=== PATIENT | male | born 1985 | race Caucasian/White ===

== ENCOUNTER 2020-12-14 15:26 | Inpatient (IN) | payer MEDICAID, SELFPAY ==
[2020-12-14] VITALS (18 sets, daily range): BP systolic 115–137; BP diastolic 50–107; PULSE 56–86; RESP 9–22; TEMP 36.4–36.8; O2SAT 93–100; BMI 23.1; BMI 23.8
--- NOTE | 2020-12-14 15:35 | CT_ITS ---
EXAM: CT ANGIOGRAPHY HEAD AND NECK WITH INTRAVENOUS CONTRAST CLINICAL INDICATION: Neuro deficit, acute, stroke suspected TECHNIQUE: [place] [facility] [place]/head and neck CT angiography protocol performed with intravenous contrast. This CT exam was performed using one or more of the following dose reduction techniques: automated exposure control, adjustment of the mA and/or kV according to patient size, and/or use of iterative reconstruction technique. This report was created using QWi[employer] report generation technology. MIP reconstructed images were created and reviewed. CONTRAST: IV 100mL [id number] COMPARISON: None. FINDINGS: ARTIFACTS: Motion artifact limits evaluation of the carotid bifurcations. HEAD: RIGHT ANTERIOR CEREBRAL ARTERY: Unremarkable. No significant stenosis at the visualized segments. Anterior communicating artery is present. No aneurysm. RIGHT MIDDLE CEREBRAL ARTERY: Unremarkable. No significant stenosis at the visualized segments. No aneurysm. RIGHT POSTERIOR CEREBRAL ARTERY: Unremarkable. No occlusion or significant stenosis. No aneurysm. LEFT ANTERIOR CEREBRAL ARTERY: Unremarkable. No significant stenosis at the visualized segments. No aneurysm. LEFT MIDDLE CEREBRAL ARTERY: Unremarkable. No significant stenosis at the visualized segments. No aneurysm. LEFT POSTERIOR CEREBRAL ARTERY: Unremarkable. No occlusion or significant stenosis. No aneurysm. BASILAR ARTERY: Unremarkable. No significant stenosis. No aneurysm. GREAT VESSELS OF AORTIC ARCH: Unremarkable. Normal anatomy, patent. OTHER VASCULATURE: See above. NECK: RIGHT COMMON CAROTID ARTERY: Unremarkable. No significant stenosis. No dissection or occlusion. RIGHT INTERNAL CAROTID ARTERY: See above. RIGHT EXTERNAL CAROTID ARTERY: Unremarkable. No occlusion. RIGHT VERTEBRAL ARTERY: Unremarkable. No significant stenosis. No dissection or occlusion. LEFT COMMON CAROTID ARTERY: Unremarkable. No significant stenosis. No dissection or occlusion. LEFT INTERNAL CAROTID ARTERY: See above. LEFT EXTERNAL CAROTID ARTERY: Unremarkable. No occlusion. LEFT VERTEBRAL ARTERY: Unremarkable. No significant stenosis. No dissection or occlusion. LUNG APICES: Unremarkable as visualized. SOFT TISSUES: Unremarkable. CAROTID STENOSIS REFERENCE USING NASCET CRITERIA: % ICA stenosis = (1 - narrowest ICA diameter/diameter of distal cervical ICA) x 100. Mild - <50% stenosis. Moderate - 50-69% stenosis. Severe - 70-94% stenosis. Near occlusion - 95-99% stenosis. Occluded - 100% stenosis. CT/STROKE CTA Head AND Neck W/Con IMPRESSION: No acute findings in the arteries of the head and neck. N.B. : The above information has been verbally conveyed by Esteban Granados MD (Brooks) to Alexsander Kelly on 12/14/2020 16:05:07 (ET). Electronically Signed: Esteban Granados MD (Brooks) at 16:09 EDT , Service support ,
--- NOTE | 2020-12-14 15:35 | CT_ITS ---
STUDY: CT HEAD STROKE PROTOCOL W/O CONTRAST INJECTION REASON FOR EXAM: Male, 35 years old. Neuro deficit, acute, stroke suspected RADIATION DOSAGE (If Supplied By Facility): CTDIvol = ( ) mGy, DLP = ( ) mGycm TECHNIQUE: Transaxial CT imaging of the brain was performed without administration of intravenous contrast material. Individualized dose optimization techniques were used for this CT. COMPARISON: No relevant priors. FINDINGS: Normal soft tissue structures. Normal calvarium. Normal size ventricles and extra-axial spaces for the patient''s age. Normal white matter tracts of the cerebral hemispheres. Normal basal ganglia and thalami. Normal brainstem. Normal cerebellum. There is no intracranial hemorrhage. There are no findings of an acute ischemic infarction. Normal visualized paranasal sinuses. ASPECT score: 10 CT/STROKE Brain/Head without Cont IMPRESSION: No acute intracranial hemorrhage or mass effect. N.B. : The above information has been verbally conveyed by Esteban Granados MD (Brooks) to Leeann Robin on 12/14/2020 15:54:26 (ET). Electronically Signed: Esteban Granados MD (Brooks) at 15:55 EDT , Service support ,
--- NOTE | 2020-12-14 15:35 | EKG12_ITS ---
Test Reason : NEURO Blood Pressure : / mmHG Vent. Rate : 069 BPM Atrial Rate : 069 BPM P-R Int : 202 ms QRS Dur : 102 ms QT Int : 426 ms P-R-T Axes : 060 081 049 degrees QTc Int : 456 ms Normal sinus rhythm Normal ECG Confirmed by HARIS REN, REY ([id number]), editor & co founder DREW STEINER ([id number]) on 12/17/2020 9:35:44 AM Referred By: RU Confirmed By:REY CARBALLO MD
[2020-12-14 15:55] LABS: Absolute Lymphocyte Count 2.52 X10^3/uL (0.83-4.51); Absolute Neutrophil Count 7.8 X10^3/uL (2.0-7.7); Basophil# 0.04 X10^3/uL; Basophil% 0.4 % (0-1); Eosinophil# 0.15 X10^3/uL; Eosinophils% 1.3 % (0-5); Hematocrit 44.3 % (40-54); Lymphocyte # 2.52 X10^3/ul (0.83-4.51); Lymphocyte % 22.3 % (19-41); Mean Corp Hgb Conc 33.9 g/dL (32-36); Mean Corpuscular Hgb 29.4 pg (27.0-32.0); Mean Corpuscular Volume 86.9 fL (80-94); Mean Platelet Vol. 8.5 fl (6.2-12.0); Monocyte# 0.77 X10^3/uL; Monocyte% 6.8 % (0-10); NRBC Flagged by Analyzer 0 % (0-5); Neutrophil # 7.81 X10^3/uL (2.7-7.7); Neutrophil % 68.9 % (47-70); Platelet Count 248 K/mm3 (150-450); RBC Distribution Width CV 12.1 % (11.6-14.6); RBC Distribution Width SD 38.7 fl (35.1-43.9); White Blood Count 11.3 K/mm3 (4.4-11.0)
[2020-12-14 15:56] LABS: Bedside Glucose 107 mg/dL (70-110)
--- NOTE | 2020-12-14 16:06 | EDS_ITS ---
HPI History of Present Illness Chief Complaint: Confusion Detail of Chief Complaint: Patient with confusion that started approximately noon Informant: patient and spouse/S.O. Onset/Context/Timing Onset: Today Narrative Narrative: Patient presents to the emergency department with increased confusion since approximately noon. Patient apparently was last known well at around noon and seen by his mother. He apparently started the some point drive to his ex[employer]'s house and got lost and so she had to go pick him up. Patient not acting appropriately. He is never behaved this way before. He does have a history of hypertension. Patient denies any trauma. He denies recent illness however he is not a good historian. Prior similar symptoms: No [facility] Medical History (Updated 12/14/20 @ 16:[address] Alexsander Kelly DO) Hypertension Substance abuse Allergy/AdvReac Type Severity Reaction Status Date / Time No Known Allergies Allergy Verified 12/14/20 15:32 Social History Smoking Status: Never smoker ROS ROS ED Review of Systems ROS Unobtainable: due to mental status Constitutional Constitutional ED: Reports systems reviewed and no addt'l complaints, except as documented and other Details: Confusion ; Denies body ache(s), change in weight or chills Eyes Eyes: Denies acute decrease in peripheral vision, change in vision, double vision or loss of vision ENT ENT ED: Reports none; Denies ear pain, lip swelling, loss taste/smell, neck pain, otalgia or sore throat Cardiovascular Cardiovascular: Reports none; Denies abdominal pain, chest pain with activity, leg edema, lightheadedness, palpitations, rapid heart rate or syncope Respiratory/Chest Respiratory/Chest: Reports none; Denies change in mental status, dry cough, dyspnea, hemoptysis, shortness of breath at rest or shortness of breath with exertion Gastrointestinal Gastrointestinal: Reports none; Denies abdominal pain, change in stool character, diarrhea, hematemesis, hematochezia, melena, rectal bleeding or vomiting Genitourinary Genitourinary ED: Reports none; Denies abdominal discomfort, anuria, dysuria, genital pain or polyuria Musculoskeletal Musculoskeletal: Reports none; Denies arthralgias, back pain, difficulty walking, extremity pain, muscle weakness or myalgias Integumentary Reports none; Denies abscess or rash Neurologic Neurologic: Reports none and other Details: Confusion and difficulty with speech ; Denies abnormal gait, confusion, focal weakness, frequent falls, headache(s), loss of vision, numbness, paresthesias, radicular pain, vertigo or weakness Psychiatric Psychiatric: Reports systems reviewed and no addt'l complaints, except as documented and none; Denies behavioral changes, confusion, difficulty concentrating, hallucinations, suicidal ideation, tactile hallucinations or visual hallucinations Endocrine Endocrinology: Denies none, cold intolerance, excessive sweating, fatigue or heat intolerance Hematologic/Lymphatic Hematologic/Lymphatic: Reports none; Denies anemia, easy bleeding or easy bruising Allergic/Immunologic Allergic/Immunologic ED: Denies as per HPI, none, lip swelling, mouth swelling, throat swelling, tongue swelling or hives EXAM Physical Exam Const Vital Signs: 12/14/20 15:29 12/14/20 15:34 12/14/20 15:43 Temperature 97.6 F L Temperature Source Oral Pulse Rate 56 L 59 L Respiratory Rate 9 L 12 Blood Pressure 136/80 H 136/80 H Blood Pressure Mean 98 98 Blood Pressure Source Blood Pressure Position Blood Pressure Location Pulse Ox 97 98 Oxygen Delivery Method Room Air Room Air Room Air 12/14/20 15:50 12/14/20 16:04 12/14/20 16:13 Temperature 97.8 F Temperature Source Temporal Pulse Rate 63 68 Respiratory Rate 12 14 Blood Pressure 129/77 H 119/76 119/76 Blood Pressure Mean 94 90 Blood Pressure Source Monitor Blood Pressure Position Semi-Fowlers Blood Pressure Location Left Arm Pulse Ox 98 100 Oxygen Delivery Method Room Air Nasal Cannula 12/14/20 16:19 12/14/20 16:34 Temperature 97.9 F 97.8 F Temperature Source Oral Oral Pulse Rate 60 65 Respiratory Rate 9 L 10 L Blood Pressure 127/85 H 123/77 H Blood Pressure Mean 99 92 Blood Pressure Source Monitor Monitor Blood Pressure Position Semi-Fowlers Semi-Fowlers Blood Pressure Location Left Arm Left Arm Pulse Ox 100 100 Oxygen Delivery Method Room Air Room Air Positive well nourished and well developed General Appearance ED: well developed and NAD HEENT Reports TM's clear and moist mucous membranes normocephalic and atraumatic; Negative for trauma or tenderness Tympanic Membrane ED: Yes TM's clear Eyes PERRL and EOMs intact bilaterally General Eye ED: Negative for pale conjunctiva or scleral icterus Neck no lymphadenopathy, supple and no JVD General: Negative for tenderness Chest Wall inspection of chest normal and palpation of chest normal Chest: Negative for tenderness Resp normal respiratory effort and clear to auscultation bilaterally Effort and Inspection: Negative for respiratory distress or pain with movement Auscultation: Negative for rhonchi, wheezes or diminished lung sounds Cardio regular rate, regular rhythm, S1 normal heart sound, S2 normal heart sound and no murmurs Peripheral Pulses: pulses 2+ throughout GI normal to inspection, nondistended, normoactive bowel sounds, soft to palpation, non-tender, non-distended and no masses Back/Spine no CVA tenderness and no thoracic nor lumbar tenderness Extremity normal to inspection General Extremety ED: Negative for edema General Extremity: Negative for edema Neuro CN's II-XII intact bilaterally, no sensory deficits noted and gait normal Neuro Narrative: Patient with expressive aphasia and confusion. NIH stroke scale of 6. Denise Coma Scale: document GCS findings Spontaneous Obeys Commands Confused 14 Sensorium / Orientation: awake, alert and oriented to person; Negative for oriented to place or oriented to time Cranial Nerves: other Motor Exam: strength 5/5 throughout and strength abnormal Psych mental status grossly normal Skin no rashes or lesions noted and no wounds STROKE Vital Signs/Narrative: Vital Signs Temp Pulse Resp BP Pulse Ox 12/14/20 16:34 97.8 F 65 10 L 123/77 H 100 12/14/20 16:19 97.9 F 60 9 L 127/85 H 100 12/14/20 16:13 119/76 12/14/20 16:04 97.8 F 68 14 119/76 100 12/14/20 15:50 63 12 129/77 H 98 12/14/20 15:34 59 L 12 136/80 H 98 12/14/20 15:29 97.6 F L 56 L 9 L 136/80 H 97 MDM MDM MDM Narrative Medical decision making narrative: A stroke team was activated on arrival. Patient was more than 3 hours [address] symptom onset. [address] of the brain without contrast was unremarkable and CTAs of the head and neck were unremarkable. Telestroke neurologist evaluated patient and is recommending TPA for NIH stroke scale of 6. Patient will be admitted to this hospital and TPA will be started. I discussed with significant other and she is comfortable with moving forward with the TPA. Patient does not have any contraindication to TPA at this time. Lab Data Labs: Laboratory Results - last 24 hr 12/14/20 12/14/20 12/14/20 15:37 15:37 15:37 WBC 11.3 H RBC 5.10 Hgb 15.0 Hct 44.3 MCV 86.9 MCH 29.4 MCHC 33.9 RDW Std Deviation 38.7 RDW Coeff of Amber 12.1 Plt Count 248 MPV 8.5 Immature Gran % (Auto) 0.300 Neut % (Auto) 68.9 Lymph % (Auto) 22.3 Simpson % (Auto) 6.8 Eos % (Auto) 1.3 Baso % (Auto) 0.4 Absolute Neuts (auto) 7.8 H Absolute Lymphs (auto) 2.52 Nucleated RBC % 0 PT 12.6 INR 1.0 APTT 23.0 L Sodium Potassium Chloride Carbon Dioxide Anion Gap BUN Creatinine Estim Creat Clear Calc Est GFR (MDRD) Af Amer Est GFR (MDRD) Non-Af BUN/Creatinine Ratio Glucose Calcium Troponin I Ethyl Alcohol < 3.0 POC Glucose 12/14/20 12/14/20 15:37 15:48 WBC RBC Hgb Hct MCV MCH MCHC RDW Std Deviation RDW Coeff of Amber Plt Count MPV Immature Gran % (Auto) Neut % (Auto) Lymph % (Auto) Simpson % (Auto) Eos % (Auto) Baso % (Auto) Absolute Neuts (auto) Absolute Lymphs (auto) Nucleated RBC % PT INR APTT Sodium 138 Potassium 3.4 L Chloride 104 Carbon Dioxide 30.0 Anion Gap 4 L BUN 34 H Creatinine 0.92 Estim Creat Clear Calc 125.13 Est GFR (MDRD) Af Amer 119 Est GFR (MDRD) Non-Af 99 BUN/Creatinine Ratio 37.0 H Glucose 131 H Calcium 9.0 Troponin I < 0.015 Ethyl Alcohol POC Glucose 107 Radiography Diagnostic Testing: Radiology Impression Brain CT 12/14/20 15:35 IMPRESSION: No acute intracranial hemorrhage or mass effect. N.B. : The above information has been verbally conveyed by Esteban Granados MD (Brooks) to Alexsander Kelly on 12/14/2020 15:54:26 (ET). Electronically Signed: Esteban Granados MD (Brooks) at 15:55 EDT , Service support , ADDENDUM: 12/14/20 1602 IMPRESSION: No acute intracranial hemorrhage or mass effect. N.B. : The above information has been verbally conveyed by Esteban Granados MD (Brooks) to Alexsander Kelly on 12/14/2020 15:54:26 (ET). Electronically Signed: Esteban Granados MD (Brooks) at 15:55 EDT , Service support , Head/Neck CTA 12/14/20 15:35 IMPRESSION: No acute findings in the arteries of the head and neck. N.B. : The above information has been verbally conveyed by Esteban Granados MD (Brooks) to Alexsander Kelly on 12/14/2020 16:05:07 (ET). Electronically Signed: Esteban Granados MD (Brooks) at 16:09 EDT , Service support , ADDENDUM: 12/14/20 1616 IMPRESSION: No acute findings in the arteries of the head and neck. N.B. : The above information has been verbally conveyed by Esteban Granados MD (Brooks) to Alexsander Kelly on 12/14/2020 16:05:07 (ET). Electronically Signed: Esteban Granados MD (Brooks) at 16:09 EDT , Service support , Critical Care Time Critical Care Time: Yes Critical care time (excluding procedures): 30-74 minutes, Discussing w/Patient &/or Family/Commutator Assembler, Discussing w/Consultants and Arranging Admission or Transfer Discharge Plan Triage Chief Complaint: Confusion ED Provider: Alexsander Kelly Dx/Rx/DC Orders Clinical Impression: Stroke, Altered level of consciousness Instructions: ED ALOC, Stroke Primary Care Provider: Care Physician,No Primary Referrals: Care Physician,No Primary [Primary Care Provider] - Disposition Disposition: Acute Care Hospital [facility]
[2020-12-14 16:13] LABS: Prothrombin Time (Protime)PT. 12.6 SECONDS (11.7-14.9)
[2020-12-14 16:18] LABS: Alcohol, Blood (Medical)-Serum < 3.0 mg/dL
[2020-12-14 16:22] LABS: Anion Gap 4 (5-15); BUN 34 mg/dL (7-18); Chloride 104 mmol/L (98-107); Creatinine, Serum 0.92 mg/dL (0.70-1.30); EST Glomerular Filtration Rate 99 mL/min (>60); Est Glom Filt Rate - Afr Amer 119 mL/min (>60); Estimated Creatinine Clearance 125.13 ml/min; Glucose 131 mg/dL (74-106); Potassium 3.4 mmol/L (3.5-5.1); Sodium Level 138 mmol/L (136-145)
--- NOTE | 2020-12-14 16:30 | RAD_ITS ---
STUDY: X-RAY CHEST REASON FOR EXAM: Male, 35 years old. Neuro deficit, acute, stroke suspected TECHNIQUE: AP COMPARISON: None. FINDINGS: EKG leads project over the chest. The lungs are clear and expanded. There is no demonstrated pleural abnormality. Normal size heart. Normal mediastinum and julius. Normal visualized pulmonary arteries. Normal visualized aortic arch and descending thoracic aorta. No acute bony process. There is no demonstrated abnormality of the visualized soft tissue structures of the upper abdomen. RAD/Chest 1 View IMPRESSION: Nonacute portable x-ray examination of the chest. Electronically Signed: Estebna Granados MD (Brooks) at 17:04 EDT , Service support ,
[2020-12-14] MEDS: 0.9% Normal Saline 1,000 ML 100 ML IV ×2 (16:38→18:38)
--- NOTE | 2020-12-14 16:47 | ED.RN ---
NO VERMA PRIOR TO TPA PER ED .
--- NOTE | 2020-12-14 17:20 | ECHOD_ITS ---
Reason For Study: TIA/STROKE Procedure This was a 2D Doppler, Color Flow transthoracic echocardiogram. Exam performed portable in ICU/CCU. Left Ventricle Normal LV size. Left ventricular systolic function is normal. The estimated ejection fraction is 60 %. Normal diastology for age. No regional wall motion abnormalities noted. Right Ventricle Normal RV size. Normal systolic function. Atria Normal left atrium. Normal right atrium. Bubble contrast study negative for right to left interatrial shunt. Mitral Valve Normal mitral valve. Tricuspid Valve Normal tricuspid valve. Mild tricuspid valve insufficiency. Pulmonary artery systolic pressure is 28 mmHg. Aortic Valve Trisinus/trileaflet aortic valve. Pulmonic Valve Normal pulmonic valve. Great Vessels Normal aortic root. The pulmonary artery is normal size. Normal inferior vena cava. Pericardium/Pleural No pericardial effusion. Small left pleural effusion. Medication Performed a rapid injection of agitated mix of 9 cc saline and 1cc air to assess for atrial septal defect. MMode/2D Measurements & Calculations LVIDd: 5.0 cm IVSd: 0.89 cm LAV(MOD-sp4): 44.3 ml LVIDs: 3.4 cm LVPWd: 0.86 cm RVDd: 3.3 cm FS: 31.0 % LVAd ap4: 29.4 cm2 LVAd ap2: 35.9 cm2 SV(MOD-sp4): 57.3 ml LVLd ap4: 7.7 cm LVLd ap2: 9.1 cm EDV(MOD-sp4): 91.9 ml EDV(MOD-sp2): 120.5 ml EDV(sp4-el): 95.5 ml EDV(sp2-el): 119.7 ml LVAs ap4: 15.5 cm2 LVAs ap2: 18.9 cm2 LVLs ap4: 5.9 cm LVLs ap2: 7.3 cm ESV(MOD-sp4): 34.7 ml ESV(MOD-sp2): 41.1 ml ESV(sp4-el): 34.2 ml ESV(sp2-el): 41.4 ml EF(MOD-sp4): 62.3 % EF(MOD-sp2): 65.9 % EF(sp4-el): 64.2 % SV(MOD-sp2): 79.4 ml SV(sp4-el): 61.3 ml LA A4 area: 15.8 cm2 LA dimension(2D): 3.6 cm RA A4 area: 16.0 cm2 Time Measurements MV dec time: 0.27 sec Doppler Measurements & Calculations MV E max perez: 81.6 cm/sec Lat Peak E' Perez: 15.4 cm/sec Med Peak E' Perez: 11.6 cm/sec MV A max perez: 34.4 cm/sec E/E' lat: 5.3 E/E' med: 7.1 MV E/A: 2.4 Ao V2 max: 90.3 cm/sec LV V1 max: 85.6 cm/sec PA V2 max: 76.5 cm/sec Ao max P.3 mmHg LV V1 max P.9 mmHg TR max perez: 243.1 cm/sec TR max P.6 mmHg ECHO/Echo Complete Interpretation Summary Normal LV size. Left ventricular systolic function is normal. The estimated ejection fraction is 60 %. Pulmonary artery systolic pressure is 28 mmHg. Bubble contrast study negative for right to left interatrial shunt. Ordering Physician: Latoya Amos Performed By: Pamela Thomas, RDCS, RVT
[2020-12-14] MEDS: Haloperidol Lactate 5 MG/ML Vial IM ×2 (17:40→17:50)
[2020-12-14] MEDS: Ziprasidone IM 20 MG/ML VIAL IM (18:00)
[2020-12-14] MEDS: Dexmedetomidine 1,000 mcg in 0.9% NS 240 mL 29.9 MCG CONT INF (18:10)
[2020-12-14] MEDS: LORazepam 2 MG/ML Syringe IV ×2 (18:31→20:51)
--- NOTE | 2020-12-14 19:06 | NURSING ---
1720- arrived to ICU, moved over to ICU bed with x3 staff members, pt rambling non-sense, words clear but not appropriate, yelling I gotta go, this is enough repeatedly, attempted to get vitals and on ICU monitor, pt began thrashing to get out of bed, resistive to care, punching the bed and yelling non-sense, kicking and biting at staff 1725- Dr. Amos paged for orders 1726- Dr. Amos returned call, on her way to unit, orders received 1730- code oswald called, patient extremely agitated and diaphoretic, RAC and LAC IVs out at bedside 1733- Dr. Latoya Amos at bedside 1735- Leather restraints applied x4, required 10 staff members to apply restraints safely 1740- Haldol 5 mg IM given by this RN, per Dr. Amos's order, continues to be combative, 12 staff members required to maintain patient and staff safety 1745- Ativan 2 mg IV given by this RN, per Dr. Amos's order, patient continues to be aggressive to self and staff and continues violent behavior, Dr. Amos remains at bedside 174- Dr. Anderson notified of all above by Jenni Snyder, YOSSI including tPa, patient condition, resistance to medication, code oswald, orders received 1750- Haldol 5 mg IM given by Jenni Snyder, YOSSI, per Dr. Amos's order, no change in patient behavior 1800- while agitated and diaphoretic, in our efforts to maintain patient safely in bed, noted IV in CINDY was infiltrated. D/C'd and pressure held as best as able. Geodon 20 mg IM given by Jenni Snyder, RN, per Dr. Amos order, no change in patient behavior 1809- RFA IV placed by Jenni Snyder, YOSSI and precedex started at 1.5 mcg/kg/hr per Dr. Amos's order Throughout code oswald, patient screaming non-sense with clear speech, definite aphasia, no dysarthria, all four extremities with equal strength, PERRLA dilated to 8mm, patient agitation prevents accurate measurement of vitals signs and NIHSS, Dr. Amos remains at bedside 1814- code oswald resolved, however patient remains mildly agitated and in constant motion, CABLE STRANDER at bedside 1829- Dr. Anderson given update per phone by Jenni Snyder RN, orders received
--- NOTE | 2020-12-14 19:11 | CASEMGMT ---
SW Note SW responded to a stroke alert. MAURIZIO met with patient's friend and roommate Tamica . She advised she has notified her family and patient's family that patient was brought to the ED. Tamica was offered emotional support. She requested water and RN said that was fine. NO other needs identified at this time. Plan: To be determined. Jenna WASHINGTON
--- NOTE | 2020-12-14 19:13 | CASEMGMT ---
SW Note SW referral source: Code Violent Reason for Referral: Code Violent SW responded to code violent on patient. However, multiple staff members were present and assisting patient. Thus, no further social work services needed at this time. SW remains available as needed. Jenna WASHINGTON
[2020-12-14] MEDS: LORazepam 2 MG/ML Syringe 1 MG IV (19:37)
--- NOTE | 2020-12-14 19:38 | NURSING ---
1830- BOX CAR CHECKER at bedside, no change in patient condition 1845[facility] no [facility] in patient condition
--- NOTE | 2020-12-14 19:38 | NURSING ---
1900- sitter at bedside
[2020-12-14] MEDS: TITRATION PARAMETER CHANGE 1 EACH IV ×2 (19:59→20:00)
--- NOTE | 2020-12-14 20:20 | HP.PCM.HOS_ITS ---
HPI - General General Date of Admission: 12/14/20 HPI Narrative LYNN ELIAS, is a 35 M who presented to the emergency department [facility] on 12/14/2020 with increased confusion and expressive aphasia. Stroke team was called on admission and an NIH of [address] and CTA of his head and neck were performed and both were negative. He was evaluated by the stroke neurologist and given his NIH tPA was ordered as the patient still remained within the 4-1/2-hour window. On my initial evaluation in the emergency department the patient persisted to speak nonsense and follow limited commands but was able to move all extremities symmetrically. He was somewhat d rowsy. His exfianc? was at the bedside. She reports that he was normal this morning when he woke up, smoked marijuana, went to the gym to workout and when he was coming home from the gym she called him and told her he did not know where he was when in fact he was within 3 blocks of the house. She was able to get him home and get him changed into close and called the squad. She denies knowledge of him using any other substances. He does have alcohol history but she indicates he has not had any thing to drink in approximately 4 years. His alcohol level was negative on admission. Per his exfianc? the only significant history she knew of besides alcohol abuse was hypertension and she is unclear if he uses his medications for this. His vital signs were all stable in the emergency department. He had a mildly elevated white count on his CBC at 11.3 but this was otherwise unremarkable. His coag studies were negative. His BMP showed a mildly elevated BUN at 34 and he was mildly hypokalemic with a potassium of 3.4. Troponin level was negative. And per discussion with the emergency physician a urine tox was ordered but not yet obtained. Upon arrival to the ICU the patient got very combative and agitated and a code Tania was called. He required significant restraints in the form of german and was given 20 mg of Geodon IM, 2 mg of IM Ativan and a total of 10 mg of IV Haldol before he was calm enough to allow reinsertion of peripheral IVs. He pulled out his initial bilateral antecubital IVs during his extreme agitation. He was talking nonsense throughout this episode but was very strong and required several people to main control of him so he would not hurt himself or the people around him. We were finally able to get him fairly subdued with the restraints and were able to initiate a Precedex drip. [facility] Medical History (Updated 12/14/20 @ 20:[address] Latoya Amos DO) Hypertension Substance abuse Allergy/AdvReac Type Severity Reaction Status Date / Time No Known Allergies Allergy Verified 12/14/20 15:32 Social History Smoking Status: Never smoker ROS Review of Systems ROS Unobtainable: due to encephalopathy and due to mental status; Denies due to endotracheal tube or due to mental condition Vital Signs Vital Signs Vital Signs: 12/14/20 15:29 12/14/20 15:34 12/14/20 15:43 Temperature 97.6 F L Temperature Source Oral Pulse Rate 56 L 59 L Respiratory Rate 9 L 12 Blood Pressure 136/80 H 136/80 H Blood Pressure Mean 98 98 Blood Pressure Source Blood Pressure Position Blood Pressure Location Pulse Ox 97 98 Oxygen Delivery Method Room Air Room Air Room Air 12/14/20 15:50 12/14/20 16:04 12/14/20 16:13 Temperature 97.8 F Temperature Source Temporal Pulse Rate 63 68 Respiratory Rate 12 14 Blood Pressure 129/77 H 119/76 119/76 Blood Pressure Mean 94 90 Blood Pressure Source Monitor Blood Pressure Position Semi-Fowlers Blood Pressure Location Left Arm Pulse Ox 98 100 Oxygen Delivery Method Room Air Nasal Cannula 12/14/20 16:19 12/14/20 16:34 12/14/20 16:49 Temperature 97.9 F 97.8 F 98 F Temperature Source Oral Oral Oral Pulse Rate 60 65 64 Respiratory Rate 9 L 10 L 11 L Blood Pressure 127/85 H 123/77 H 136/72 H Blood Pressure Mean 99 92 93 Blood Pressure Source Monitor Monitor Monitor Blood Pressure Position Semi-Fowlers Semi-Fowlers Semi-Fowlers Blood Pressure Location Left Arm Left Arm Left Arm Pulse Ox 100 100 100 Oxygen Delivery Method Room Air Room Air Room Air 12/14/20 16:50 12/14/20 17:04 Temperature 98 F 98 F Temperature Source Oral Oral Pulse Rate 70 67 Respiratory Rate 10 L 10 L Blood Pressure 127/75 H 127/75 H Blood Pressure Mean 92 92 Blood Pressure Source Blood Pressure Position Blood Pressure Location Pulse Ox 100 100 Oxygen Delivery Method Room Air Room Air Physical Exam Const Constitutional Narrative: Patient was initially sleepy in the emergency department but on arrival to the ICU became extremely agitated and violent, he was speaking incoherently and unable to participate, he was in extreme danger of hurting himself and others around him General Appearance: uncooperative Orientation / Consciousness: confused and disoriented HEENT normocephalic, head/scalp atraumatic, hearing grossly normal bilaterally, moist oral mucous membranes, oropharynx normal and dentition normal Mouth: oral and palatal mucosa normal Eyes EOMs intact bilaterally and conjunctivae normal Eyes Narrative: Pupils were dilated but reactive Neck no lymphadenopathy, supple, no JVD and no carotid bruits Resp normal respiratory effort, no retractions, no use of accessory muscles and clear to auscultation bilaterally Auscultation: Negative for crackles, rales, rhonchi or wheezes Cardio regular rate, regular rhythm, S1 normal heart sound, S2 normal heart sound, no murmurs, no rub, no gallops, no clicks and no JVD GI normal to inspection, nondistended, normoactive bowel sounds, soft to palpation, non-tender and non-distended; Negative for hepatosplenomegaly Auscultation: Negative for hyperactive bowel sounds or hypoactive bowel sounds Palpation: Negative for tender, guarding or hernia Extremity Negative for normal to inspection, full ROM or no clubbing, cyanosis or edema Peripheral Pulses: Negative for pulses 2+ throughout Skin No no rashes or lesions noted, no wounds, skin turgor normal, no jaundice, no petechiae and no mottling Skin Narrative: Bilateral gynecomastia, linear erythematous lines on bilateral shoulders Neuro CN's II-XII intact bilaterally, moves all extremities and no focal motor deficits Neuro Narrative: Speech was markedly abnormal Sensorium / Orientation: awake and alert Motor Exam: strength 5/5 throughout Psych Psych Narrative: Extreme agitation Lab / Micro Data Attestation: I reviewed the patient's lab results. Result Diagrams: 12/14/20 15:37 12/14/20 15:37 Labs: Laboratory Results - last 24 hr 12/14/20 12/14/20 12/14/20 15:37 15:37 15:37 WBC 11.3 H RBC 5.10 Hgb 15.0 Hct 44.3 MCV 86.9 MCH 29.4 MCHC 33.9 RDW Std Deviation 38.7 RDW Coeff of Amber 12.1 Plt Count 248 MPV 8.5 Immature Gran % (Auto) 0.300 Neut % (Auto) 68.9 Lymph % (Auto) 22.3 [place] % (Auto) 6.8 Eos % (Auto) 1.3 Baso % (Auto) 0.4 Absolute Neuts (auto) 7.8 H Absolute Lymphs (auto) 2.52 Nucleated RBC % 0 PT 12.6 INR 1.0 APTT 23.0 L Sodium Potassium Chloride Carbon Dioxide Anion Gap BUN Creatinine Estim Creat Clear Calc Est GFR (MDRD) Af Amer Est GFR (MDRD) Non-Af BUN/Creatinine Ratio Glucose Calcium Troponin I Ethyl Alcohol < 3.0 POC Glucose 12/14/20 12/14/20 15:37 15:48 WBC RBC Hgb Hct MCV MCH MCHC RDW Std Deviation RDW Coeff of Amber Plt Count MPV Immature Gran % (Auto) Neut % (Auto) Lymph % (Auto) [place] % (Auto) Eos % (Auto) Baso % (Auto) Absolute Neuts (auto) Absolute Lymphs (auto) Nucleated RBC % PT INR APTT Sodium 138 Potassium 3.4 L Chloride 104 Carbon Dioxide 30.0 Anion Gap 4 L BUN 34 H Creatinine 0.92 Estim Creat Clear Calc 125.13 Est GFR (MDRD) Af Amer 119 Est GFR (MDRD) Non-Af 99 BUN/Creatinine Ratio 37.0 H Glucose 131 H Calcium 9.0 Troponin I < 0.015 Ethyl Alcohol POC Glucose [address] 12/14/20 15:35 IMPRESSION: No acute intracranial hemorrhage or mass effect. N.B. : The above information has been verbally conveyed by Esteban Granados MD (Brooks) to Alexsander Kelly on 12/14/2020 15:54:26 (ET). Electronically Signed: Esteban Granados MD (Brooks) at 15:55 EDT , Service support , ADDENDUM: 12/14/20 1602 IMPRESSION: No acute intracranial hemorrhage or mass effect. N.B. : The above information has been verbally conveyed by Esteban Granados MD (Brooks) to Alexsander Fitzgeraldur on 12/14/2020 15:54:26 (ET). Electronically Signed: Esteban Granados MD (Brooks) at 15:55 EDT , Service support , Head/Neck CTA 12/14/20 15:35 IMPRESSION: No acute findings in the arteries of the head and neck. N.B. : The above information has been verbally conveyed by Esteban Granados MD (Brooks) to Leeann Robin on 12/14/2020 16:05:07 (ET). Electronically Signed: Esteban Granados MD (Brooks) at 16:09 EDT , Service support , ADDENDUM: 12/14/20 1616 IMPRESSION: No acute findings in the arteries of the head and neck. N.B. : The above information has been verbally conveyed by Esteban Granados MD (Brooks) to Kulm Robin on 12/14/2020 16:05:07 (ET). Electronically Signed: Esteban Granados MD (Brooks) at 16:09 EDT , Service support , Chest X-Ray 12/14/20 16:30 IMPRESSION: Nonacute portable x-ray examination of the chest. Electronically Signed: Esteban Granados MD (Brooks) at 17:04 EDT , Service support , Assessment & Plan Assessment/Plan (1) Altered level of consciousness: (2) Hypokalemia: (3) Agitation: (4) Toxic encephalopathy: (5) Leukocytosis: (6) Gynecomastia: (7) Substance abuse: (8) Hypertension: PLAN: Toxic encephalopathy/altered level of consciousness -Patient was initially treated for stroke with TPA in the emergency department but with the events that occurred in the ICU I highly doubt this is an issue -We will pursue stroke work-up to rule this out to include MRI and echo -Precedex drip--> wean as able -Patient will need to remain in restraints until his behavior indicates otherwise -Tox screen is pending--> known marijuana use this morning--> question of marijuana was laced with other substances -I highly suspect this was related to substance abuse -Check TSH -Stroke order set utilized Leukocytosis -Mild -Suspect reactive -Repeat CBC in a.m. Hypokalemia -Replete once patient able to take p.o. as I do not think IV potassium would be a good idea with his agitation level -Repeat lab in a.m. -Potassium was 3.4 on admission and therefore only mildly low Gynecomastia -With patient's history of working out one would question utilization of anabolic steroids -Question if above is related to steroid rage Hypertension -Monitor blood pressure -As needed labetalol -Hold scheduled medication as his blood pressure will be lower with the Precedex DVT prophylaxis -Hold secondary to TPA utilization CODE STATUS -Full code Visit Charges Inpatient E&M: 93817 Init Hosp L3
[2020-12-14] MEDS: Haloperidol Lactate 5 MG/ML Vial IV (20:50)
[2020-12-14] MEDS: Dexmedetomidine 1,000 mcg in 0.9% NS 240 mL 39.9 MCG CONT INF (20:51)
[2020-12-14] MEDS: DiphenhydrAMINE 50 MG/ML Syringe 25 MG IV (21:01)
--- NOTE | 2020-12-14 22:08 | NURSING ---
1904- On arrival for report patient was in 4x leather, violent restraints. Patient was unable to follow any commands at this time and was thrashing in bed. Patient is very strong and appears to be able to move all extremities appropriately. Patient does state some words No, wait, stop, leave me alone clearly but I'm unable to get him to state anything else for a NIH assessment. I will continue to closely monitor patient and continue to perform the NIHs as best as possible according to orders. 2134-Dr. Levy is at bedside assessing patient. Dr. Levy signs to renew order for violent 4x leather restraints at this time. Gerardo is also at bedside.
[2020-12-14 23:51] LABS: Thyroid Stim Hormone (TSH) 2.93 uIU/mL (0.358-3.74)
[2020-12-15] VITALS (28 sets, daily range): BP systolic 112–134; BP diastolic 59–73; PULSE 40–72; RESP 14–25; TEMP 36.5–37; O2SAT 94–100; BMI 23.8
[2020-12-15] MEDS: 0.9% Normal Saline 1,000 ML 999 ML IV (00:02)
[2020-12-15] MEDS: LORazepam 2 MG/ML Syringe 1 MG IV (00:55)
[2020-12-15] MEDS: Haloperidol Lactate 5 MG/ML Vial IV ×3 (00:55→11:20)
[2020-12-15] MEDS: 0.9% Normal Saline 1,000 ML 200 ML IV ×5 (02:28→19:57)
[2020-12-15] MEDS: Dexmedetomidine 1,000 mcg in 0.9% NS 240 mL 39.9 MCG CONT INF ×3 (02:58→21:49)
[2020-12-15 04:18] LABS: Absolute Lymphocyte Count 1.21 X10^3/uL (0.83-4.51); Absolute Neutrophil Count 11.4 X10^3/uL (2.0-7.7); Basophil# 0.02 X10^3/uL; Basophil% 0.1 % (0-1); Hematocrit 41.2 % (40-54); Hemoglobin 14.3 g/dL (13.0-16.5); Lymphocyte # 1.21 X10^3/ul (0.83-4.51); Lymphocyte % 8.8 % (19-41); Mean Corp Hgb Conc 34.7 g/dL (32-36); Mean Corpuscular Hgb 29.2 pg (27.0-32.0); Mean Corpuscular Volume 84.3 fL (80-94); Mean Platelet Vol. 8.3 fl (6.2-12.0); Monocyte# 0.98 X10^3/uL; Monocyte% 7.2 % (0-10); NRBC Flagged by Analyzer 0 % (0-5); Neutrophil # 11.43 X10^3/uL (2.7-7.7); Neutrophil % 83.6 % (47-70); Platelet Count 209 K/mm3 (150-450); RBC Distribution Width CV 11.9 % (11.6-14.6); RBC Distribution Width SD 36.1 fl (35.1-43.9); Red Blood Count 4.89 M/mm3 (4.6-6.2); White Blood Count 13.7 K/mm3 (4.4-11.0)
[2020-12-15 04:36] LABS: ALB/GLOB Ratio 1.2 RATIO (0.9-2.4); AST(SGOT) 129 U/L (15-37); Alanine Aminotransfer ALT/SGPT 76 U/L (16-61); Albumin, Serum 3.4 g/dL (3.2-5.0); Alkaline Phosphatase 64 U/L (45-117); Anion Gap 7 (5-15); BUN 16 mg/dL (7-18); BUN/Creat Ratio 22.3 RATIO (10-20); Calcium,Total 8.1 mg/dL (8.5-10.1); Chloride 106 mmol/L (98-107); Cholesterol 130 mg/dL (200); Creatinine, Serum 0.72 mg/dL (0.70-1.30); EST Glomerular Filtration Rate 131 mL/min (>60); Est Glom Filt Rate - Afr Amer 159 mL/min (>60); Estimated Creatinine Clearance 155.68 ml/min; Globulin 2.9 g/dL (2.2-4.2); Glucose 137 mg/dL (74-106); High Density Lipoprotein 63 mg/dL; Potassium 3.7 mmol/L (3.5-5.1); Protein, Total 6.3 g/dL (6.4-8.2); Sodium Level 140 mmol/L (136-145); Triglycerides 41 mg/dL; Very Low Density Lipoprotein 8 mg/dL (5-40)
[2020-12-15 05:17] LABS: Amphetamine Urine VISTA NEGATIVE (<1000 ng/mL); Barbiturate Urine VISTA NEGATIVE (< 200 ng/mL); Benzodiazepine Urine VISTA NEGATIVE (< 200 ng/mL); Cocaine Urine VISTA NEGATIVE (< 300 ng/mL); Ecstacy Urine VISTA NEGATIVE (< 500 ng/mL); Methadone Urine VISTA NEGATIVE (< 300 ng/mL); PCP Urine VISTA NEGATIVE (< 25 ng/mL); THC Urine VISTA POSITIVE (< 50 ng/mL); Vista UDS pH Range 5
--- NOTE | 2020-12-15 06:57 | CON.PCM.CC_ITS ---
Assessment & Plan Assessment/Plan (1) Toxic encephalopathy: (2) Altered level of consciousness: (3) Substance abuse: (4) Hypertension: PLAN: . RECOMMENDATIONS: 1. Continue Precedex drip and wean as tolerated 2. Continue TPA protocol 3. Consider holding on MRI for 24 hours 4. Will need a CT of the head without contrast at 24 hours 5. Attempt to remove restraints as mental condition allows IMPRESSIONS: 1. Acute CVA versus toxic encephalopathy Unclear etiology at this time. Patient has a very poor history, but was very aggressive over the last 24 hours. Patient did receive a full TPA dose, so a CT of the head will be indicated the 24 hours. We will continue a Precedex drip for now. Attempt to discontinue restraints as patient will allow. Patient does not appear to have acute infection to lead to confusion. Patient does smoke marijuana, so potential for additional exposure such as bath salts would be a consideration. We will continue with sedation to allow for metabolism of possible toxins and support hemodynamics. Given patient received a full dose of TPA, CT of the head should be done. We will hold on MRI as patient will likely not allow for adequate imaging. 2. Hypertension/poor historian/aggressive behavior Complicates care, management, recovery and prognosis. Blood pressure is controlled at this time. Patient does not appear to have any significant ecchymosis associated with agitation in the setting of TPA. If patient is found to be an alcoholic, addition of phenobarbital would be a consideration. HPI Consult Data Date of Consult: 12/15/20 HPI Narrative HPI Narrative: LYNN ELIAS is a 35 M, with past medical history listed below, who presented to [facility] on 12/14/2020 secondary to confusion that started at approximately noon. Patient was reportedly at baseline prior to this instance as documented by his mother. Patient reportedly had gotten lost trying to get to his exfianc?'s house and was not acting appropriately. Patient did not have any previous history of similar confusion. No trauma was noted and patient did not have any reported history of constitutional symptoms suggesting infectious etiology. History was extremely limited. In the ER, patient was afebrile and slightly hypertensive at 136/80. Patient was not tachycardic and was saturating well on room air. On arrival, stroke team was activated. CT and CTA of the head and neck were unremarkable. Telestroke neurologist reportedly suggested TPA was appropriate with an NIH scale of 6, mainly secondary to aphasia and dysarthria. Laboratory work-up showed a slight leukocytosis at 11.3, normal coagulation studies, negative alcohol level and normal renal function. Glucose and troponins were within normal limits. Patient was then transferred to the intensive care unit for further monitoring. On arrival to the intensive care unit, patient was extremely combative. Patient had 12 people holding him down at one point. Patient had to be placed on german. Over the last 13 hours, patient has received a Precedex drip, 6 mg of Ativan, 20 mg of Geodon and a total of 20 mg of Haldol. Patient currently is sleeping, but does not wake up long enough to provide any additional history. Per nursing, patient did receive his full TPA dose, but had pulled out his IV prior to the flush being completed. Obtaining blood pressures and NIH is have been difficult given patient's combativeness. Nursing staff has talked with the exfianc? and reportedly the patient only uses marijuana. Unable to obtain a review of systems at this time secondary to mental status [facility] Medical History (Updated 12/14/20 @ 20:[address] Latoya Amos DO) Hypertension Substance abuse Allergy/AdvReac Type Severity Reaction Status Date / Time No Known Allergies Allergy Verified 12/14/20 15:32 Social History Smoking Status: Smoker, status unknown ROS Review of Systems ROS Unobtainable: due to encephalopathy and due to mental condition Physical Exam Const no apparent distress General Appearance: lethargic; Negative for cooperative or ill appearing HEENT normocephalic, head/scalp atraumatic and moist oral mucous membranes Eyes PERRL, EOMs intact bilaterally, conjunctivae normal and no scleral icterus Neck full ROM and no lymphadenopathy Chest inspection of chest normal Resp normal respiratory effort and no use of accessory muscles Effort and Inspection: Negative for actively coughing or uses accessory muscles Auscultation: clear to auscultation bilaterally; Negative for rales, rhonchi or wheezes Cardio regular rate, regular rhythm, S1 normal heart sound, S2 normal heart sound, no murmurs, no rub, no gallops and no JVD GI normal to inspection, nondistended, normoactive bowel sounds Extremity no clubbing, cyanosis or edema Skin no rashes or lesions noted Skin Narrative: No significant ecchymosis noted Neuro moves all extremities Neuro Narrative: Vocalizes clearly statements such as leave me alone Psych Mood & Affect: labile affect Lab / Micro Data Result Diagrams: 12/15/20 04:10 12/15/20 04:10 Labs: Laboratory Results - last 24 hr 12/14/20 12/14/20 12/14/20 15:37 15:37 15:37 WBC 11.3 H RBC 5.10 Hgb 15.0 Hct 44.3 MCV 86.9 MCH 29.4 MCHC 33.9 RDW Std Deviation 38.7 RDW Coeff of Amber 12.1 Plt Count 248 MPV 8.5 Immature Gran % (Auto) 0.300 Neut % (Auto) 68.9 Lymph % (Auto) 22.3 [place] % (Auto) 6.8 Eos % (Auto) 1.3 Baso % (Auto) 0.4 Absolute Neuts (auto) 7.8 H Absolute Lymphs (auto) 2.52 Nucleated RBC % 0 PT 12.6 INR 1.0 APTT 23.0 L Sodium Potassium Chloride Carbon Dioxide Anion Gap BUN Creatinine Estim Creat Clear Calc Est GFR (MDRD) Af Amer Est GFR (MDRD) Non-Af BUN/Creatinine Ratio Glucose Calcium Total Bilirubin AST ALT Alkaline Phosphatase Troponin I Total Protein Albumin Globulin Albumin/Globulin Ratio Triglycerides Cholesterol LDL Cholesterol VLDL Cholesterol HDL Cholesterol TSH Urine Opiates Screen Urine Methadone Screen Ur Barbiturates Screen Ur Phencyclidine Scrn Ur Amphetamines Screen U Methamphetamin-MDMA U Benzodiazepines Scrn Urine Cocaine Screen U Cannabinoids Screen Ur Drug Screen Comment Ethyl Alcohol < 3.0 POC Glucose 12/14/20 12/14/20 12/14/20 15:37 15:48 23:00 WBC RBC Hgb Hct MCV MCH MCHC RDW Std Deviation RDW Coeff of Amber Plt Count MPV Immature Gran % (Auto) Neut % (Auto) Lymph % (Auto) [place] % (Auto) Eos % (Auto) Baso % (Auto) Absolute Neuts (auto) Absolute Lymphs (auto) Nucleated RBC % PT INR APTT Sodium 138 Potassium 3.4 L Chloride 104 Carbon Dioxide 30.0 Anion Gap 4 L BUN 34 H Creatinine 0.92 Estim Creat Clear Calc 125.13 Est GFR (MDRD) Af Amer 119 Est GFR (MDRD) Non-Af 99 BUN/Creatinine Ratio 37.0 H Glucose 131 H Calcium 9.0 Total Bilirubin AST ALT Alkaline Phosphatase Troponin I < 0.015 < 0.015 Total Protein Albumin Globulin Albumin/Globulin Ratio Triglycerides Cholesterol LDL Cholesterol VLDL Cholesterol HDL Cholesterol TSH 2.93 Urine Opiates Screen Urine Methadone Screen Ur Barbiturates Screen Ur Phencyclidine Scrn Ur Amphetamines Screen U Methamphetamin-MDMA U Benzodiazepines Scrn Urine Cocaine Screen U Cannabinoids Screen Ur Drug Screen Comment Ethyl Alcohol POC Glucose 107 12/15/20 12/15/20 12/15/20 04:10 04:10 04:30 WBC 13.7 H RBC 4.89 Hgb 14.3 Hct 41.2 MCV 84.3 MCH 29.2 MCHC 34.7 RDW Std Deviation 36.1 RDW Coeff of Amber 11.9 Plt Count 209 MPV 8.3 Immature Gran % (Auto) 0.300 Neut % (Auto) 83.6 H Lymph % (Auto) 8.8 L [place] % (Auto) 7.2 Eos % (Auto) 0.0 Baso % (Auto) 0.1 Absolute Neuts (auto) 11.4 H Absolute Lymphs (auto) 1.21 Nucleated RBC % 0 PT INR APTT Sodium 140 Potassium 3.7 Chloride 106 Carbon Dioxide 27.0 Anion Gap 7 BUN 16 Creatinine 0.72 Estim Creat Clear Calc 155.68 Est GFR (MDRD) Af Amer 159 Est GFR (MDRD) Non-Af 131 BUN/Creatinine Ratio 22.3 H Glucose 137 H Calcium 8.1 L Total Bilirubin 1.00 AST 129 H ALT 76 H Alkaline Phosphatase 64 Troponin I Total Protein 6.3 L Albumin 3.4 Globulin 2.9 Albumin/Globulin Ratio 1.2 Triglycerides 41 Cholesterol 130 LDL Cholesterol 59 VLDL Cholesterol 8 HDL Cholesterol 63 TSH Urine Opiates Screen NEGATIVE Urine Methadone Screen NEGATIVE Ur Barbiturates Screen NEGATIVE Ur Phencyclidine Scrn NEGATIVE Ur Amphetamines Screen NEGATIVE U Methamphetamin-MDMA NEGATIVE U Benzodiazepines Scrn NEGATIVE Urine Cocaine Screen NEGATIVE U Cannabinoids Screen POSITIVE H Ur Drug Screen Comment Ethyl Alcohol POC Glucose Radiology Impression Brain CT 12/14/20 15:35 IMPRESSION: No acute intracranial hemorrhage or mass effect. N.B. : The above information has been verbally conveyed by Esteban Granados MD (Brooks) to Alexsander Kelly on 12/14/2020 15:54:26 (ET). Electronically Signed: Esteban Granados MD (Brooks) at 15:55 EDT , Service support , ADDENDUM: 12/14/20 1602 IMPRESSION: No acute intracranial hemorrhage or mass effect. N.B. : The above information has been verbally conveyed by Esteban Granados MD (Brooks) to Alexsander Kelly on 12/14/2020 15:54:26 (ET). Electronically Signed: Esteban Granados MD (Brooks) at 15:55 EDT , Service support , Head/Neck CTA 12/14/20 15:35 IMPRESSION: No acute findings in the arteries of the head and neck. N.B. : The above information has been verbally conveyed by Esteban Granados MD (Brooks) to Alexsander Kelly on 12/14/2020 16:05:07 (ET). Electronically Signed: Esteban Granados MD (Brooks) at 16:09 EDT , Service support , ADDENDUM: 12/14/20 1616 IMPRESSION: No acute findings in the arteries of the head and neck. N.B. : The above information has been verbally conveyed by Esteban Granados MD (Brooks) to Alexsander Kelly on 12/14/2020 16:05:07 (ET). Electronically Signed: Esteban Granados MD (Brooks) at 16:09 EDT , Service support , Chest X-Ray 12/14/20 16:30 IMPRESSION: Nonacute portable x-ray examination of the chest. Electronically Signed: Esteban Granados MD (Brooks) at 17:04 EDT , Service support , Charges/Coding Visit Charges Inpatient E&M: 71445 Init Hosp L3
--- NOTE | 2020-12-15 07:11 | PCM.PN.HOSP ---
Subjective Subjective Patient is a 35-year-old gentleman presented to the emergency department with confusion and agitation. Patient was initially treated for possible stroke with TPA and subsequently admitted to the intensive care unit. Patient became significantly agitated resulting in patient being restrained physically as well as being started on Precedex drip. Talk screen was positive for marijuana Objective Data Objective Data Vital Signs: Vital Signs Temp Pulse Resp BP Pulse Ox 98.6 F 64 16 125/67 H 94 12/15/20 04:00 12/15/20 06:00 12/15/20 06:00 12/15/20 06:00 12/15/20 06:00 Oxygen Delivery Method Room Air Weight: 79.7 kg Body Mass Index (BMI) 23.8 Intake & Output: Intake and Output for Last 24 Hours 12/13/20 12/14/20 12/15/20 23:59 23:59 23:59 Intake Total 637.66 / 1214.23 2867.94 / 2867.94 Output Total 550 / 550 Balance 637.66 / 1214.23 2317.94 / 2317.94 Lab / Micro Data Result Diagrams: 12/15/20 04:10 12/15/20 04:10 Labs: Laboratory Results 12/14/20 15:37: Ethyl Alcohol < 3.0 12/14/20 15:37: WBC 11.3 H, RBC 5.10, Hgb 15.0, Hct 44.3, MCV 86.9, MCH 29.4, MCHC 33.9, RDW Std Deviation 38.7, RDW Coeff of Amber 12.1, Plt Count 248, MPV 8.5, Immature Gran % (Auto) 0.300, Neut % (Auto) 68.9, Lymph % (Auto) 22.3, [place] % (Auto) 6.8, Eos % (Auto) 1.3, Baso % (Auto) 0.4, Absolute Neuts (auto) 7.8 H, Absolute Lymphs (auto) 2.52, Nucleated RBC % 0 12/14/20 15:37: PT 12.6, INR 1.0, APTT 23.0 L 12/14/20 15:37: Sodium 138, Potassium 3.4 L, Chloride 104, Carbon Dioxide 30.0, Anion Gap 4 L, BUN 34 H, Creatinine 0.92, Estim Creat Clear Calc 125.13, Est GFR (MDRD) Af Amer 119, Est GFR (MDRD) Non-Af 99, BUN/Creatinine Ratio 37.0 H, Glucose 131 H, Calcium 9.0, Troponin I < 0.015 12/14/20 15:48: POC Glucose 107 12/14/20 18:15: Miscellaneous Test Pending 12/14/20 23:00: Troponin I < 0.015, TSH 2.93 12/15/20 04:10: Sodium 140, Potassium 3.7, Chloride 106, Carbon Dioxide 27.0, Anion Gap 7, BUN 16, Creatinine 0.72, Estim Creat Clear Calc 155.68, Est GFR (MDRD) Af Amer 159, Est GFR (MDRD) Non-Af 131, BUN/Creatinine Ratio 22.3 H, Glucose 137 H, Calcium 8.1 L, Total Bilirubin 1.00, AST 129 H, ALT 76 H, Alkaline Phosphatase 64, Total Protein 6.3 L, Albumin 3.4, Globulin 2.9, Albumin/Globulin Ratio 1.2, Triglycerides 41, Cholesterol 130, LDL Cholesterol 59, VLDL Cholesterol 8, HDL Cholesterol 63 12/15/20 04:10: WBC 13.7 H, RBC 4.89, Hgb 14.3, Hct 41.2, MCV 84.3, MCH 29.2, MCHC 34.7, RDW Std Deviation 36.1, RDW Coeff of Amber 11.9, Plt Count 209, MPV 8.3, Immature Gran % (Auto) 0.300, Neut % (Auto) 83.6 H, Lymph % (Auto) 8.8 L, [place] % (Auto) 7.2, Eos % (Auto) 0.0, Baso % (Auto) 0.1, Absolute Neuts (auto) 11.4 H, Absolute Lymphs (auto) 1.21, Nucleated RBC % 0 12/15/20 04:30: Urine Opiates Screen NEGATIVE, Urine Methadone Screen NEGATIVE, Ur Barbiturates Screen NEGATIVE, Ur Phencyclidine Scrn NEGATIVE, Ur Amphetamines Screen NEGATIVE, U Methamphetamin-MDMA NEGATIVE, U Benzodiazepines Scrn NEGATIVE, Urine Cocaine Screen NEGATIVE, U Cannabinoids Screen POSITIVE H, Ur Drug Screen Comment Radiography Diagnostic Testing: Radiology Impression Brain CT 12/14/20 15:35 IMPRESSION: No acute intracranial hemorrhage or mass effect. N.B. : The above information has been verbally conveyed by Esteban Granados MD (Brooks) to Remus Robin on 12/14/2020 15:54:26 (ET). Electronically Signed: Esteban Granados MD (Brooks) at 15:55 EDT , Service support , ADDENDUM: 12/14/20 1602 IMPRESSION: No acute intracranial hemorrhage or mass effect. N.B. : The above information has been verbally conveyed by Esteban Granados MD (Brooks) to Leeannus Robin on 12/14/2020 15:54:26 (ET). Electronically Signed: Esteban Granados MD (Brooks) at 15:55 EDT , Service support , Head/Neck CTA 12/14/20 15:35 IMPRESSION: No acute findings in the arteries of the head and neck. N.B. : The above information has been verbally conveyed by Esteban Granados MD (Brooks) to Remus Robin on 12/14/2020 16:05:07 (ET). Electronically Signed: Esteban Granados MD (Brooks) at 16:09 EDT , Service support , ADDENDUM: 12/14/20 1616 IMPRESSION: No acute findings in the arteries of the head and neck. N.B. : The above information has been verbally conveyed by Esteban Granados MD (Brooks) to Leeannus Robin on 12/14/2020 16:05:07 (ET). Electronically Signed: Esteban Granados MD (Brooks) at 16:09 EDT , Service support , Chest X-Ray 12/14/20 16:30 IMPRESSION: Nonacute portable x-ray examination of the chest. Electronically Signed: Esteban Granados MD (Brooks) at 17:04 EDT , Service support , Physical Exam Narrative GENERAL: Patient is sleeping but arousable HEENT: Atraumatic; EYES; Anicteric, Normal Conjunctiva NECK; supple, normal thyroid, RESPIRATORY: Diminished to auscultation CARDIOVASCULAR: Regular S1 S2, GI: soft, normoactive bowel sounds, : No Renal angle tenderness; EXTREMITIES: No edema, no clubbing, MUSCULOSKELETAL: no muscle waisting NEURO: No lateralizing signs SKIN: No Rash PSYCH; sleeping Assessment & Plan Assessment/Plan (1) Altered level of consciousness: (2) Hypokalemia: (3) Agitation: (4) Toxic encephalopathy: (5) Leukocytosis: (6) Gynecomastia: (7) Substance abuse: (8) Hypertension: PLAN: Patient is a 35-year-old gentleman presented to the emergency department with confusion and agitation. Patient was initially treated for possible stroke with TPA and subsequently admitted to the intensive care unit. Patient became significantly agitated resulting in patient being restrained physically as well as being started on Precedex drip. Talk screen was positive for marijuana Acute toxic encephalopathy ?Do suspect toxic encephalopathy from illicit drug use. Patient of screen was positive for marijuana. 2. Acute CVA ruled out ?Patient was initially treated with TPA for suspected CVA however his presentation is not consistent with acute CVA 3. Leukocytosis ?Reactive no evidence of infection 4. Abnormal LFTs ?Etiology not clear at this point subsequent monitoring with CMP ordered 5. Hypokalemia -corrected per protocol 6. Gynecomastia ?Attributed to use of anabolic steroids for weightlifting 7. Elevated blood pressure ?Present on admission blood pressure has since stabilized 8. DVT prophylaxis ?Patient did receive TPA chemoprophylaxis contraindicated in the first 48 hours. Moreover patient remains low risk Visit Charges Inpatient E&M: [address] [facility] Hosp L3
--- NOTE | 2020-12-15 08:00 | NURSING ---
Very difficult to assess NIHSS due to lethargy from Precedex. When pt was repositioned in the bed he was moving all extremities but would not follow commands and moaning but did not form any words. Very stiff with movement and resistive to care.
[2020-12-15] MEDS: Dexmedetomidine 1,000 mcg in 0.9% NS 240 mL 31.9 MCG CONT INF (10:00)
[2020-12-15] MEDS: LORazepam 2 MG/ML Syringe IV ×4 (11:18→21:13)
[2020-12-15] MEDS: DiphenhydrAMINE 50 MG/ML Syringe IV (11:20)
--- NOTE | 2020-12-15 11:30 | NURSING ---
Into pt's room to turn him @ 1100. While removing restraints to do so, pt awoke and became very agitated and combative. Ena akers was called at 1112. Meds were given- see EMAR. Precedex increased to 2 mcg/kg/hr per Dr Birch order. Approximately 6-8 staff required to safely keep pt in bed. 4 points soft restraints maintained. At 1130 pt had fallen asleep and was resting w/no distress.
[2020-12-15] MEDS: 0.9% Saline Lock 10 ML Syringe IV ×3 (11:58→21:14)
[2020-12-15] MEDS: Haloperidol Lactate 5 MG/ML Vial 10 MG IV (12:22)
[2020-12-15] MEDS: Ziprasidone IM 20 MG/ML VIAL IM (12:30)
--- NOTE | 2020-12-15 12:40 | NURSING ---
1215- Pt becoming more agitated in soft restraints. During transition to locked restraints pt became very agitated, combative and was thrashing around in bed. Due to concern for pt & staff safety Ena Marin was called at 1218. Meds given- see EMAR. Constance Mckenzie NP & Dr Birch both at bedside assisting. At approximately 1240 pt again became calm and is sleeping w/no distress. 4 point locked restraints remain, new order obtain for violent locked restraints. Significant other Tamica was notified. Again asked her if pt had taken any illegal substances or anything prior to working out. She takes pt takes supplements but does not do illegal substances other than Marijuana. States she can bring in his supplement containers to see if there is something that could be causing this behavior. RN remains at bedside for pt safety w/4 point locked restraints.
--- NOTE | 2020-12-15 16:15 | CT_ITS ---
STUDY: CT BRAIN WITHOUT CONTRAST REASON FOR EXAM: Male, 35 years old. s/p tpa 24 hour check RADIATION DOSAGE (If Supplied By Facility): CTDIvol = ( 44.99 ) mGy, DLP = ( 846.73 ) mGycm TECHNIQUE: Transaxial CT imaging of the brain was performed without administration of intravenous contrast material. Individualized dose optimization techniques were used for this CT. COMPARISON: Yesterday FINDINGS: Normal soft tissue structures. Normal calvarium. Normal size ventricles and extra-axial spaces for the patient''s age. Normal white matter tracts of the cerebral hemispheres. Normal basal ganglia and thalami. Normal brainstem. Normal cerebellum. There is no intracranial hemorrhage. There are no findings of an acute ischemic infarction. Normal visualized paranasal sinuses. CT/Brain/Head without Contrast IMPRESSION: No acute intracranial hemorrhage or mass effect. Stable. Electronically Signed: Esteban Granados MD (Brooks) at 16:53 EDT , Service support ,
--- NOTE | 2020-12-15 18:20 | NURSING ---
Throughout the day it has been very difficult to assess an NIH on pt d/t either combativeness & agitation or lethargy from medications. Dr Justin jamil.
[2020-12-16] VITALS (26 sets, daily range): BP systolic 108–131; BP diastolic 63–88; PULSE 37–71; RESP 12–16; TEMP 35.6–36.3; O2SAT 99–100; BMI 23.8
[2020-12-16] MEDS: 0.9% Normal Saline 1,000 ML 200 ML IV (00:52)
[2020-12-16] MEDS: LORazepam 2 MG/ML Syringe IV ×2 (01:46→06:40)
[2020-12-16] MEDS: 0.9% Saline Lock 10 ML Syringe IV ×2 (01:46→03:20)
[2020-12-16 03:35] LABS: Absolute Lymphocyte Count 2.17 X10^3/uL (0.83-4.51); Absolute Neutrophil Count 6.8 X10^3/uL (2.0-7.7); Basophil# 0.03 X10^3/uL; Basophil% 0.3 % (0-1); Eosinophil# 0.12 X10^3/uL; Eosinophils% 1.2 % (0-5); Hematocrit 41.5 % (40-54); Hemoglobin 14.1 g/dL (13.0-16.5); Lymphocyte # 2.17 X10^3/ul (0.83-4.51); Lymphocyte % 21.7 % (19-41); Mean Corpuscular Hgb 29.2 pg (27.0-32.0); Mean Corpuscular Volume 85.9 fL (80-94); Mean Platelet Vol. 8.8 fl (6.2-12.0); Monocyte# 0.84 X10^3/uL; Monocyte% 8.4 % (0-10); NRBC Flagged by Analyzer 0 % (0-5); Neutrophil # 6.82 X10^3/uL (2.7-7.7); Neutrophil % 68.1 % (47-70); Platelet Count 194 K/mm3 (150-450); Red Blood Count 4.83 M/mm3 (4.6-6.2)
[2020-12-16 03:44] LABS: Anion Gap 4 (5-15); BUN 10 mg/dL (7-18); BUN/Creat Ratio 17.6 RATIO (10-20); Calcium,Total 8.2 mg/dL (8.5-10.1); Chloride 113 mmol/L (98-107); Creatinine, Serum 0.57 mg/dL (0.70-1.30); EST Glomerular Filtration Rate 172 mL/min (>60); Est Glom Filt Rate - Afr Amer 208 mL/min (>60); Estimated Creatinine Clearance 196.65 ml/min; Glucose 120 mg/dL (74-106); Potassium 3.7 mmol/L (3.5-5.1); Sodium Level 145 mmol/L (136-145)
[2020-12-16] MEDS: TITRATION PARAMETER CHANGE 1 EACH IV (03:55)
[2020-12-16] MEDS: Dexmedetomidine 1,000 mcg in 0.9% NS 240 mL 37.7 MCG CONT INF (04:14)
[2020-12-16] MEDS: 0.9% Normal Saline 1,000 ML 50 ML IV (06:40)
--- NOTE | 2020-12-16 06:40 | PN.CC_ITS ---
Assessment & Plan Assessment/Plan (1) Toxic encephalopathy: (2) Altered level of consciousness: (3) Substance abuse: (4) Hypertension: PLAN: . RECOMMENDATIONS: 1. Continue Precedex drip and wean as tolerated 2. Hold on MRI for now pending improved mentation 3. Hold on QT prolonging medications 4. Decrease IV fluid ministration 5. Attempt to remove restraints as mental condition allows IMPRESSIONS: 1. Acute CVA versus toxic encephalopathy Unclear etiology at this time. Patient has a very poor history, but was very aggressive over the last [address] of the head did not show significant complications. Patient did not have any findings consistent with ischemia. Patient continues to require significant sedation secondary to agitation. Toxic encephalopathy from unclear medication is suspected. Patient does not have a history of alcoholism that we are aware of. Patient does workout frequently, so anabolic steroids would be a consideration, but unclear why patient would have an acute increase in agitation. 2. Hypertension/poor historian/aggressive behavior Complicates care, management, recovery and prognosis. Blood pressure is controlled at this time. Patient does not appear to have any significant ecchymosis associated with agitation in the setting of TPA. Subjective Subjective Patient continues to be significantly agitated with decreased medications. Patient did have a code Tania called yesterday. Patient received Haldol, Ativan and Geodon. CT of the head did not show any complications from TPA. Patient continues to be poorly directable. Objective Data Objective Data Vital Signs: Vital Signs Temp Pulse Resp BP Pulse Ox 35.6 C L 38 L 14 131/76 H 100 12/16/20 04:00 12/16/20 05:00 12/16/20 05:00 12/16/20 05:00 12/16/20 05:00 Oxygen Flow Rate (L/min) 2 Oxygen Delivery Method Room Air Weight: 79.3 kg Body Mass Index (BMI) 23.8 Intake & Output: Intake and Output for Last 24 Hours 12/14/20 12/15/20 12/16/20 23:59 23:59 23:59 Intake Total 637.66 / 1214.23 6363.69 / 6403.59 2215.02 / 2215.02 Output Total 2850 / 3850 1550 / 1550 Balance 637.66 / 1214.23 3513.69 / 2553.59 665.02 / 665.02 Lab / Micro Data Result Diagrams: 12/16/20 03:15 12/16/20 03:15 Labs: Laboratory Results - last 24 hr 12/16/20 12/16/20 03:15 03:15 WBC 10.0 RBC 4.83 Hgb 14.1 Hct 41.5 MCV 85.9 MCH 29.2 MCHC 34.0 RDW Std Deviation 38.0 RDW Coeff of Amber 12.0 Plt Count 194 MPV 8.8 Immature Gran % (Auto) 0.300 Neut % (Auto) 68.1 Lymph % (Auto) 21.7 [place] % (Auto) 8.4 Eos % (Auto) 1.2 Baso % (Auto) 0.3 Absolute Neuts (auto) 6.8 Absolute Lymphs (auto) 2.17 Nucleated RBC % 0 Sodium 145 Potassium 3.7 Chloride 113 H Carbon Dioxide 28.0 Anion Gap 4 L BUN 10 Creatinine 0.57 L Estim Creat Clear Calc 196.65 Est GFR (MDRD) Af Amer 208 Est GFR (MDRD) Non-Af 172 BUN/Creatinine Ratio 17.6 Glucose 120 H Calcium 8.2 L Radiography Diagnostic Testing: Radiology Impression Brain CT 12/15/20 16:15 IMPRESSION: No acute intracranial hemorrhage or mass effect. Stable. Electronically Signed: Esteban Granados MD (Brooks) at 16:53 EDT , Service support , Physical Exam Const no apparent distress General Appearance: lethargic; Negative for cooperative or ill appearing HEENT normocephalic, head/scalp atraumatic and moist oral mucous membranes Eyes PERRL, EOMs intact bilaterally, conjunctivae normal and no scleral icterus Neck full ROM and no lymphadenopathy Chest inspection of chest normal Resp normal respiratory effort and no use of accessory muscles Effort and Inspection: Negative for actively coughing or uses accessory muscles Auscultation: clear to auscultation bilaterally; Negative for rales, rhonchi or wheezes Cardio regular rate, regular rhythm, S1 normal heart sound, S2 normal heart sound, no murmurs, no rub, no gallops and no JVD GI normal to inspection, nondistended, normoactive bowel sounds Extremity no clubbing, cyanosis or edema Skin no rashes or lesions noted Skin Narrative: Only minor bruising on the left dejesus and bilateral wrists Neuro moves all extremities Neuro Narrative: Patient not cooperative with exam. Sensation is intact. Moves all extremities. Psych Mood & Affect: labile affect Charges/Coding Visit Charges Inpatient E&M: 04623 Subs Hosp L3
--- NOTE | 2020-12-16 09:13 | CASEMGMT ---
Addendum entered by Yolanda Valdovinos 12/16/20 15:18: PHQ-9 not completed as stroke ruled out. FREEMAN Ruth Original Note: SW participated in ICU rounds. Pt is still confused at present as per nursing. SW will continue to follow, will speak w/pt when appropriate. DIANA RuthS
--- NOTE | 2020-12-16 09:41 | PN.HOSP_ITS ---
Subjective Subjective Patient remains sedated with Precedex at 1.9. Any attempts at weaning result in increased agitation, aggressive behavior and recurrent code violets. Repeat CT scan done yesterday was unremarkable. Per nursing discussion with his mom he suffered from Covid in August 2020 and had delirium at that time but was fe brile at that time as well. Objective Data Objective Data Vital Signs: Vital Signs Temp Pulse Resp BP Pulse Ox 96.2 F L 38 L 13 128/69 H 100 12/16/20 08:00 12/16/20 08:00 12/16/20 08:00 12/16/20 08:00 12/16/20 08:00 Oxygen Flow Rate (L/min) 2 Oxygen Delivery Method Room Air Weight: 79.3 kg Body Mass Index (BMI) 23.8 Intake & Output: Intake and Output for Last 24 Hours 12/14/20 12/15/20 12/16/20 23:59 23:59 23:59 Intake Total 637.66 / 1214.23 6363.69 / 6403.59 2290.42 / 2290.42 Output Total 2850 / 3850 2350 / 2350 Balance 637.66 / 1214.23 3513.69 / 2553.59 -59.58 / -59.58 Lab / Micro Data Result Diagrams: 12/16/20 03:15 12/16/20 03:15 Labs: Laboratory Results - last 24 hr 12/16/20 12/16/20 03:15 03:15 WBC 10.0 RBC 4.83 Hgb 14.1 Hct 41.5 MCV 85.9 MCH 29.2 MCHC 34.0 RDW Std Deviation 38.0 RDW Coeff of Amber 12.0 Plt Count 194 MPV 8.8 Immature Gran % (Auto) 0.300 Neut % (Auto) 68.1 Lymph % (Auto) 21.7 [place] % (Auto) 8.4 Eos % (Auto) 1.2 Baso % (Auto) 0.3 Absolute Neuts (auto) 6.8 Absolute Lymphs (auto) 2.17 Nucleated RBC % 0 Sodium 145 Potassium 3.7 Chloride 113 H Carbon Dioxide 28.0 Anion Gap 4 L BUN 10 Creatinine 0.57 L Estim Creat Clear Calc 196.65 Est GFR (MDRD) Af Amer 208 Est GFR (MDRD) Non-Af 172 BUN/Creatinine Ratio 17.6 Glucose 120 H Calcium 8.2 L Radiography Diagnostic Testing: Radiology Impression Brain CT 12/15/20 16:15 IMPRESSION: No acute intracranial hemorrhage or mass effect. Stable. Electronically Signed: Esteban Granados MD (Brooks) at 16:53 EDT , Service support , Physical Exam Const no apparent distress, healthy appearing and well nourished Constitutional Narrative: Middle-aged white male lying in bed sleeping, on heavy sedation, calm at this time, in four-point restraints Exam Limitations: altered mental status and behavioral limitations; Negative for no limitations, language barrier or physical limitations Nutritional Appearance: other Other Details: Average weight HEENT head/scalp atraumatic, moist oral mucous membranes and dentition normal Head and Scalp: normocephalic Eyes PERRL and conjunctivae normal Neck no lymphadenopathy, supple, no JVD and no carotid bruits Resp normal respiratory effort, no retractions, no use of accessory muscles and clear to auscultation bilaterally Auscultation: Negative for crackles, rales, rhonchi or wheezes Cardio regular rhythm, S1 normal heart sound, S2 normal heart sound, no murmurs, no rub, no gallops, no clicks and no JVD Cardio Narrative: Bradycardia GI normal to inspection, nondistended, normoactive bowel sounds, soft to palpation, non-tender and non-distended; Negative for hepatosplenomegaly Auscultation: Negative for hyperactive bowel sounds or hypoactive bowel sounds Palpation: Negative for tender, guarding or hernia Extremity normal to inspection and no clubbing, cyanosis or edema Extremity Narrative: Few small scattered ecchymosis Peripheral Pulses: Yes pulses 2+ throughout Skin no rashes or lesions noted, no wounds, skin turgor normal, no jaundice, no petechiae and no mottling Neuro Neuro Narrative: Currently sedated, reflexes 3+ out of 4 that brachioradialis and patellar Psych Psych Narrative: Marked agitation while not sedated Assessment & Plan Assessment/Plan (1) Toxic encephalopathy: (2) Altered level of consciousness: PLAN: Toxic encephalopathy/altered level of consciousness--> etiology unclear -Patient was initially treated for stroke with TPA in the emergency department -Patient unable to undergo MRI so a 24-hour CT was performed on 12/15 and it was negative for any acute processes -Echo is pending -Continue Precedex drip--> wean as able -Continue as needed Ativan -Patient in soft restraints -Continue these until patient's behavior warrants otherwise -Tox screen was only positive for marijuana -Per family it is not possible that this was contaminated marijuana as they keep in a freezer in their home and he is not the only user -Patient does take multiple supplements that he buys online -TSH was within normal limits -Serum anabolic steroid level pending Bradycardia -Related to Precedex and age/fitness level -Blood pressures are stable -Continue to monitor Leukocytosis -Resolved Hypokalemia -Resolved Gynecomastia -With patient's history of working out one would question utilization of anabolic steroids -Question if above is related to steroid rage -Level pending Hypertension -No current issues DVT prophylaxis -We will initiate Lovenox today CODE STATUS -Full code Visit Charges Inpatient E&M: 04115 Init Hosp L2
[2020-12-16] MEDS: Enoxaparin 40 MG/0.4 ML Syringe SC (11:00)
[2020-12-16] MEDS: Dexmedetomidine 1,000 mcg in 0.9% NS 240 mL 35.7 MCG CONT INF (12:09)
[2020-12-16] MEDS: Dexmedetomidine 1,000 mcg in 0.9% NS 240 mL 23.8 MCG CONT INF (20:49)
--- NOTE | 2020-12-16 23:04 | NURSING ---
Restraints removed at 2130 on 12/16/20
[2020-12-17] VITALS (22 sets, daily range): BP systolic 93–153; BP diastolic 55–86; PULSE 56–110; RESP 12–16; TEMP 36.3–37.2; O2SAT 95–99; BMI 23.8
[2020-12-17] MEDS: 0.9% Normal Saline 1,000 ML 50 ML IV (02:28)
[2020-12-17 04:56] LABS: Anion Gap 8 (5-15); BUN 11 mg/dL (7-18); BUN/Creat Ratio 17.4 RATIO (10-20); Calcium,Total 8.3 mg/dL (8.5-10.1); Chloride 108 mmol/L (98-107); Creatinine, Serum 0.63 mg/dL (0.70-1.30); EST Glomerular Filtration Rate 152 mL/min (>60); Est Glom Filt Rate - Afr Amer 184 mL/min (>60); Estimated Creatinine Clearance 177.92 ml/min; Glucose 80 mg/dL (74-106); Potassium 3.2 mmol/L (3.5-5.1); Sodium Level 144 mmol/L (136-145)
--- NOTE | 2020-12-17 06:24 | PN.CC_ITS ---
Assessment & Plan Assessment/Plan (1) Toxic encephalopathy: (2) Altered level of consciousness: (3) Substance abuse: (4) Hypertension: PLAN: . RECOMMENDATIONS: 1. Discontinue Precedex drip 2. Obtain MRI and EEG 3. Potential neurology consult following EEG/MRI 4. Bedside swallow with initiation of p.o. diet if acceptable 5. Increase activity as tolerated IMPRESSIONS: 1. Acute CVA versus toxic encephalopathy Unclear etiology at this time. Patient is not reporting any head trauma. Patient much more appropriate at this time. Clinical course would be suggestive of a toxic encephalopathy, but patient does appear to have some word finding. It is unclear if this is secondary to Precedex. This will be discontinued. W ill obtain an MRI and EEG. Patient should have a neurologist consultation prior to discharge. Will attempt to obtain studies prior to consult. 2. Hypertension/poor historian/aggressive behavior Complicates care, management, recovery and prognosis. Blood pressure is controlled at this time. Patient does not appear to have any significant ecchymosis associated with agitation in the setting of TPA. Subjective Subjective Patient did well overnight. Patient much more appropriate today compared to previous. Patient does appear to have some issues with word finding. Patient has no recollection over the last 2 days. Patient denies any head trauma or new medications. Patient does admit to marijuana use, but has not had a reaction like this before. Patient denies any seizure history. Objective Data Objective Data Vital Signs: Vital Signs Temp Pulse Resp BP Pulse Ox 36.6 C 67 13 96/62 98 12/17/20 04:00 12/17/20 05:00 12/17/20 05:00 12/17/20 05:00 12/17/20 05:00 Oxygen Flow Rate (L/min) 2 Oxygen Delivery Method Room Air Weight: 79.7 kg Body Mass Index (BMI) 23.8 Intake & Output: Intake and Output for Last 24 Hours 12/15/20 12/16/20 12/17/20 23:59 23:59 23:59 Intake Total 6363.69 / 6403.59 2774.60 / 2774.60 1034.23 / 1034.23 Output Total 2850 / 3850 4610 / 5075 640 / 640 Balance 3513.69 / 2553.59 -1835.40 / -2300.40 394.23 / 394.23 Lab / Micro Data Result Diagrams: 12/16/20 03:15 12/17/20 04:35 Labs: Laboratory Results - last 24 hr 12/17/20 04:35 Sodium 144 Potassium 3.2 L Chloride 108 H Carbon Dioxide 28.0 Anion Gap 8 BUN 11 Creatinine 0.63 L Estim Creat Clear Calc 177.92 Est GFR (MDRD) Af Amer 184 Est GFR (MDRD) Non-Af 152 BUN/Creatinine Ratio 17.4 Glucose 80 Calcium 8.3 L Radiography Diagnostic Testing: Radiology Impression Echocardiogram 12/14/20 17:20 Interpretation Summary Normal LV size. Left ventricular systolic function is normal. The estimated ejection fraction is 60 %. Pulmonary artery systolic pressure is 28 mmHg. Bubble contrast study negative for right to left interatrial shunt. Ordering Physician: Latoya Amos Performed By: Pamela Thomas, ISAAC, RVT Physical Exam Const alert, no apparent distress and average body habitus General Appearance: cooperative and comfortable; Negative for in distress, anxious or ill appearing HEENT normocephalic, head/scalp atraumatic and moist oral mucous membranes Eyes PERRL, EOMs intact bilaterally, conjunctivae normal and no scleral icterus Neck full ROM and no lymphadenopathy Chest inspection of chest normal Resp normal respiratory effort and no use of accessory muscles Effort and Inspection: Negative for actively coughing or uses accessory muscles Auscultation: clear to auscultation bilaterally; Negative for rales, rhonchi or wheezes Cardio regular rate, regular rhythm, S1 normal heart sound, S2 normal heart sound, no murmurs, no rub, no gallops and no JVD GI normal to inspection, nondistended, normoactive bowel sounds Extremity no clubbing, cyanosis or edema Skin no rashes or lesions noted Skin Narrative: Only minor bruising on the left dejesus and bilateral wrists Neuro moves all extremities Neuro Narrative: No focal motor abnormalities. Sensation is intact. Does have difficulty with word finding Psych Mood & Affect: labile affect Charges/Coding Visit Charges Inpatient E&M: 01258 Subs Hosp L3
[2020-12-17] MEDS: 0.9% Saline Lock 10 ML Syringe IV ×3 (06:49→22:00)
[2020-12-17] MEDS: Potassium Chloride 10mEq/100mL 10 MEQ/100 ML IV.SOLN. 100 MEQ IV BOLUS ×4 (06:50→11:04)
[2020-12-17] MEDS: Haloperidol Lactate 5 MG/ML Vial IV (08:40)
--- NOTE | 2020-12-17 09:16 | TELEMED_ITS ---
[facility] has confirmed receipt of a request for visit. This document confirms receipt of the order initiating the consult. To find the results of the consultation, please view the patient's reports for the scanned Telemed Consult.
--- NOTE | 2020-12-17 09:42 | NURSING ---
transferred to MRI with YOSSI Corona
[2020-12-17] MEDS: LORazepam 2 MG/ML Syringe IV (10:17)
--- NOTE | 2020-12-17 10:26 | PN.HOSP_ITS ---
Subjective Subjective Patient has now been able to be weaned off Precedex. He is calm and alert and oriented x3. He denies any recollection of what had happened and is unable to add any more to his history. His speech is clear and fluid and appropriate. Objective Data Objective Data Vital Signs: Vital Signs Temp Pulse Resp BP Pulse Ox 97.4 F L 92 14 127/67 H 98 12/17/20 09:00 12/17/20 09:00 12/17/20 09:00 12/17/20 09:00 12/17/20 09:00 Oxygen Flow Rate (L/min) 2 Oxygen Delivery Method Room Air Weight: 79.7 kg Body Mass Index (BMI) 23.8 Intake & Output: Intake and Output for Last 24 Hours 12/15/20 12/16/20 12/17/20 23:59 23:59 23:59 Intake Total 6363.69 / 6403.59 2774.60 / 2774.60 1518.29 / 1518.29 Output Total 2850 / 3850 4610 / 5075 815 / 815 Balance 3513.69 / 2553.59 -1835.40 / -2300.40 703.29 / 703.29 Lab / Micro Data Result Diagrams: 12/16/20 03:15 12/17/20 04:35 Labs: Laboratory Results - last 24 hr 12/17/20 04:35 Sodium 144 Potassium 3.2 L Chloride 108 H Carbon Dioxide 28.0 Anion Gap 8 BUN 11 Creatinine 0.63 L Estim Creat Clear Calc 177.92 Est GFR (MDRD) Af Amer 184 Est GFR (MDRD) Non-Af 152 BUN/Creatinine Ratio 17.4 Glucose 80 Calcium 8.3 L Radiography Diagnostic Testing: Radiology Impression Echocardiogram 12/14/20 17:20 Interpretation Summary Normal LV size. Left ventricular systolic function is normal. The estimated ejection fraction is 60 %. Pulmonary artery systolic pressure is 28 mmHg. Bubble contrast study negative for right to left interatrial shunt. Ordering Physician: Latoya Amos Performed By: Pamela Thomas, ISAAC, RVT Physical Exam Const alert, oriented x3, no apparent distress, average body habitus, healthy appe aring and well nourished Exam Limitations: Negative for no limitations HEENT head/scalp atraumatic, moist oral mucous membranes and oropharynx normal Head and Scalp: normocephalic Eyes PERRL, EOMs intact bilaterally and conjunctivae normal Neck supple Neck Narrative: Trachea midline Resp normal respiratory effort, no retractions, no use of accessory muscles and clear to auscultation bilaterally Auscultation: Negative for crackles, rales, rhonchi or wheezes Cardio regular rate, regular rhythm, S1 normal heart sound, S2 normal heart sound, no murmurs, no rub, no gallops, no clicks and no JVD GI normal to inspection, nondistended, normoactive bowel sounds, soft to palpation, non-tender and non-distended Palpation: Negative for guarding or hernia Extremity normal to inspection and no clubbing, cyanosis or edema Peripheral Pulses: Yes pulses 2+ throughout Skin no rashes or lesions noted Neuro oriented x3, CN's II-XII intact bilaterally, moves all extremities, no focal motor deficits and no sensory deficits noted Sensorium / Orientation: awake, alert, oriented to person, oriented to place and oriented to time Speech: speech normal Motor Exam: strength 5/5 throughout Psych Psych Narrative: Flat affect, poor eye contact Assessment & Plan Assessment/Plan (1) Toxic encephalopathy: (2) Hypokalemia: PLAN: Toxic encephalopathy/altered level of consciousness--> etiology unc lear -Patient is now close to baseline -Patient was initially treated for stroke with TPA in the emergency department -Patient unable to undergo MRI so a 24-hour CT was performed on 12/15 and it was negative for any acute processes -MRI today -Echo showed normal EF at 60% -Patient is now alert and oriented and appropriate off Precedex drip -No longer needing restraints -Tox screen was only positive for marijuana -Per family it is not possible that this was contaminated marijuana as they keep in a freezer in their home and he is not the only user -EEG pending -TSH was within normal limits -Serum anabolic steroid level pending -SOC consult pending Bradycardia -Resolved now that he is off Precedex Hypokalemia -60 mEq of p.o. potassium -Repeat in a.m. Gynecomastia -With patient's history of working out one would question utilization of anabolic steroids -Question if above is related to steroid rage versus THC utilization -Level pending Hypertension -No current issues DVT prophylaxis -Lovenox subcu CODE STATUS -Full code Visit Charges Inpatient E&M: 96280 Subs Hosp L2
--- NOTE | 2020-12-17 10:55 | NURSING ---
return from MRI at this time, report received from YOSSI Russell.
--- NOTE | 2020-12-17 11:15 | NURSING ---
Patient sitting up in bed. Noted to be tearful and withdrawn, patient states I just want to know when I am getting out of here. Conversation with patient reveals he does not recall recently going down for MRI and test not being completed due to patients mentation and inability to sit still. Patient states he is hungry and would like to eat something so we order a lunch tray.
[2020-12-17 13:25] LABS: Anion Gap 5 (5-15); BUN 11 mg/dL (7-18); Calcium,Total 8.8 mg/dL (8.5-10.1); Chloride 107 mmol/L (98-107); Creatinine, Serum 0.78 mg/dL (0.70-1.30); EST Glomerular Filtration Rate 119 mL/min (>60); Est Glom Filt Rate - Afr Amer 143 mL/min (>60); Glucose 119 mg/dL (74-106); Potassium 3.2 mmol/L (3.5-5.1); Sodium Level 139 mmol/L (136-145)
--- NOTE | 2020-12-17 14:40 | CASEMGMT ---
SW participated in ICU rounds. Pt had further testing this morning. SW attempted to see pt this afternoon, pt is sleeping. Pt is more alert and oriented but still exhibiting forgetfulness, it may be more beneficial to see pt tomorrow. SW will see pt today if he wakes, otherwise will see pt and do initial assessment, give resources tomorrow. FREEMAN Ruth
--- NOTE | 2020-12-17 15:12 | CT_ITS ---
HISTORY: Encephalopathy EXAMINATION: CT Head or Brain WO/W Contrast Injection TECHNIQUE: Multiple axial images were obtained of the brain with and without IV contrast. A radiation dose optimization technique was used for this scan. IV Contrast dosage and agent: 50ML ISOVUE 370 COMPARISON: Noncontrast head CT 12/14/20 FINDINGS: BRAIN PARENCHYMA: No intra- or extra-axial hemorrhage. No evidence of acute infarct. No intracranial mass or mass effect. There is preservation of the choudhury/white matter interface. Posterior fossa structures are unremarkable. No abnormal contrast enhancement. CSF SPACES: Appropriate for age. No hydrocephalus. Basal cisterns are patent. CALVARIUM, SKULL BASE, PARANASAL SINUSES AND MASTOID AIR CELLS: Clear. No discrete lytic or blastic abnormalities. CT/Brain/Head W/WO Contrast IMPRESSION: Negative CT Brain with and without contrast. Individualized dose optimization techniques were used for this CT. at 1728 Reported and signed by: Kam Ledesma MD Electronically Signed: Kam Ledesma MD at 17:27 EDT Tel , Service support ,
[2020-12-17 16:22] LABS: Erythrocyte Sedimentation Rate 8 mm/hr (0-20)
--- NOTE | 2020-12-17 16:30 | NURSING ---
Patient pre medicated for CT with Ativan 2mg IV as ordered. Patient taken to CT via bed by ICU chargemaster analystYOSSI Jacinto.
[2020-12-18] VITALS (10 sets, daily range): BP systolic 109–148; BP diastolic 58–83; PULSE 67–82; RESP 14–22; TEMP 36.9–37.2; O2SAT 95–99; BMI 23.8
[2020-12-18 07:40] LABS: Anion Gap 5 (5-15); BUN 9 mg/dL (7-18); BUN/Creat Ratio 11.8 RATIO (10-20); Calcium,Total 8.8 mg/dL (8.5-10.1); Chloride 108 mmol/L (98-107); Creatinine, Serum 0.76 mg/dL (0.70-1.30); EST Glomerular Filtration Rate 123 mL/min (>60); Est Glom Filt Rate - Afr Amer 148 mL/min (>60); Estimated Creatinine Clearance 145.77 ml/min; Glucose 98 mg/dL (74-106); Potassium 3.4 mmol/L (3.5-5.1); Sodium Level 141 mmol/L (136-145)
--- NOTE | 2020-12-18 08:06 | PCM.PN.INT ---
Assessment & Plan Assessment/Plan (1) Toxic encephalopathy: (2) Altered level of consciousness: (3) Substance abuse: (4) Hypertension: PLAN: RECOMMENDATIONS: 1. Could receive sedation for MRI 2. Obtain MRI 3. Await hypercoagulable work-up 4. Hemodynamically stable on room air. Will sign off from a critical care perspective 5. Increase activity as tolerated IMPRESSIONS: 1. Acute CVA versus toxic encephalopathy Unclear etiology at this time. Patient is not reporting any head trauma. Patient much more appropriate at this time. Clinical course would be suggestive of a toxic encephalopathy, but patient does appear to have some word finding. Recommendations from neurology have been instituted. CTA of the head was unremarkable. Discussed with the patient that the MRI would be the definitive test for acute infarct. Patient is willing to attend. Discussed with hospitalist. 2. Hypertension/poor historian/aggressive behavior Complicates care, management, recovery and prognosis. Blood pressure is controlled at this time. Patient does not appear to have any significant ecchymosis associated with agitation in the setting of TPA. Objective Data Objective Data Vital Signs: Vital Signs Temp Pulse Resp BP Pulse Ox 36.9 C 67 16 134/68 H 95 12/18/20 05:11 12/18/20 06:59 12/18/20 05:11 12/18/20 05:11 12/18/20 07:23 Oxygen Flow Rate (L/min) 2 Oxygen Delivery Method Room Air Weight: 76.7 kg Body Mass Index (BMI) 23.8 Intake & Output: Intake and Output for Last 24 Hours 12/16/20 12/17/20 12/18/20 23:59 23:59 23:59 Intake Total 2774.60 / 2774.60 2483.29 / 2483.29 Output Total 4610 / 5075 1065 / 1065 Balance -1835.40 / -2300.40 1418.29 / 1418.29 Lab / Micro Data Result Diagrams: 12/16/20 03:15 12/18/20 06:25 Labs: Laboratory Results - last 24 hr 12/17/20 12/17/20 12/17/20 13:00 15:45 15:45 ESR 8 Sodium 139 Potassium 3.2 L Chloride 107 Carbon Dioxide 27.0 Anion Gap 5 BUN 11 Creatinine 0.78 Estim Creat Clear Calc 143.70 Est GFR (MDRD) Af Amer 143 Est GFR (MDRD) Non-Af 119 BUN/Creatinine Ratio 14.0 Glucose 119 H Calcium 8.8 C-React Prot Ext Range 18.40 H 12/18/20 06:25 ESR Sodium 141 Potassium 3.4 L Chloride 108 H Carbon Dioxide 28.0 Anion Gap 5 BUN 9 Creatinine 0.76 Estim Creat Clear Calc 145.77 Est GFR (MDRD) Af Amer 148 Est GFR (MDRD) Non-Af 123 BUN/Creatinine Ratio 11.8 Glucose 98 Calcium 8.8 C-React Prot Ext Range Radiography Diagnostic Testing: Radiology Impression Brain CT 12/17/20 15:12 IMPRESSION: Negative CT Brain with and without contrast. Individualized dose optimization techniques were used for this CT. at 1728 Reported and signed by: Kam Ledsema MD Electronically Signed: Kam Ledesma MD at 17:27 EDT Tel , Service support , Physical Exam Const alert, no apparent distress and average body habitus General Appearance: cooperative and comfortable; Negative for in distress, anxious or ill appearing HEENT normocephalic, head/scalp atraumatic and moist oral mucous membranes Eyes PERRL, EOMs intact bilaterally, conjunctivae normal and no scleral icterus Neck full ROM and no lymphadenopathy Chest inspection of chest normal Resp normal respiratory effort and no use of accessory muscles Effort and Inspection: Negative for actively coughing or uses accessory muscles Auscultation: clear to auscultation bilaterally; Negative for rales, rhonchi or wheezes Cardio regular rate, regular rhythm, S1 normal heart sound, S2 normal heart sound, no murmurs, no rub, no gallops and no JVD GI normal to inspection, nondistended, normoactive bowel sounds Extremity no clubbing, cyanosis or edema Skin no rashes or lesions noted Skin Narrative: Only minor bruising on the left dejesus and bilateral wrists Neuro moves all extremities Neuro Narrative: No focal motor abnormalities. Sensation is intact. Does have difficulty with word finding Psych Mood & Affect: labile affect Charges/Coding Visit Charges Inpatient E&M: 12161 Subs Hosp L2
--- NOTE | 2020-12-18 09:00 | MRI_ITS ---
STUDY: MRI BRAIN WITHOUT CONTRAST REASON FOR EXAM: Male, 35 years old. stroke TECHNIQUE: Standardized multiplanar fat and water weighted pulse sequences were obtained. COMPARISON: None. FINDINGS: Normal size of the ventricles and extra-axial spaces for the patient''s age. Normal white matter tracts of the supratentorial brain. Normal bilateral basal ganglia. Normal thalami. There is no extra-axial fluid accumulation. Normal flow voids within the major intracranial circulation suggesting patency by spin echo criteria. Normal sella turcica, pituitary gland, infundibular stalk, optic chiasm and hypothalamus. Normal tectal plate and pineal gland. Normal midbrain, thomas and medulla. Normal cerebellum. MRI/Brain without Contrast IMPRESSION: Normal unenhanced MRI of the brain. Electronically Signed: Mendy Santana MD at 13:22 EDT Tel , Service support ,
--- NOTE | 2020-12-18 09:36 | CASEMGMT ---
Assessment- MAURIZIO completed assessment with patient at bedside.? Living situation- Patient lives with his significant other in a 2 story home. ? PCP: none Specialists: None Pharmacy: none DME:? none ADL's/IADL's: independent with everything. He works out regularly ? Past SNF/rehab: none Past HH: none LW: none POA:none? SW asked patient about any history of any mental health diagnoses such as depression anxiety and he denied any. SW asked about any use of drugs or alcohol and patient denied this. However, MAURIZIO is aware his drug screen was positive for Marijuana. He does not have health insurance. Patient was not forthcoming with answers. He would answer as little as possible. He was worried about his hospital bill and the cost of the MRI. SW did have a packet of resources since he does not have insurance. MAURIZIO went over them with him. He picked up the packet SW left and looked for the Medicaid application. He asked if he could have a pen to do the application. MAURIZIO gave him a pen. MAURIZIO told him if he completes it SW can fax it for him. Susana Rios DRIVE THRU ORDER TAKER NELIDA
[2020-12-18] MEDS: Enoxaparin 40 MG/0.4 ML Syringe SC (10:22)
[2020-12-18] MEDS: LORazepam 2 MG/ML Syringe IV (11:41)
[2020-12-18] MEDS: 0.9% Saline Lock 10 ML Syringe IV ×2 (11:42→14:01)
--- NOTE | 2020-12-18 11:57 | NURSING ---
1150-Pt premedicated with PRN ativan prior to MRI. Transported to MRI and verbal report given to Anatoly SY who will be staying with pt.
--- NOTE | 2020-12-18 12:47 | NURSING ---
report called to Constance SY to let her know status of patient and how he tolerated the MRI, transferred to pcu via wheelchair, girlfriend present.
--- NOTE | 2020-12-18 13:42 | PCM.DC.SUM ---
Providers Date of Admission: 12/14/20 Primary Care Physician: No Primary Care Phys Consultations 12/14/20 16:04 Consult: Event Marketing Coordinator / Pulmonary Medicine Routine Consulting Provider: [facility] Reason for Consult: stroke for alteplase, agitation EMERGENT Consult: No MD Notified: Yes Date Notified:: 12/14/20 Time Notified: 16:04 Method of Notification: Verbal per ED Reason For Visit: STROKE Diagnosis Discharge Diagnosis (1) Toxic encephalopathy: Status: Acute Code(s): G92 - Toxic encephalopathy (2) Altered level of consciousness: Status: Acute Code(s): R40.4 - Transient alteration of awareness (3) Substance abuse: Status: Acute Code(s): F19.10 - Other psychoactive substance abuse, uncomplicated (4) Hypertension: Status: Chronic Code(s): I10 - Essential (primary) hypertension Hospital Course Operations None Procedures - (MRI of the brain, CTA head and neck, CT of head x2, CT of head with IV contrast, echocardiogram, EEG) Summary of Care Provided Minutes Spent on Discharge: 33 Hospital Course: HPI - General General Date of Admission: 12/14/20 HPI Narrative LYNN ELIAS, is a 35 M who presented to the emergency department [facility] on 12/14/2020 with increased confusion and expressive aphasia.? Stroke team was called on admission and an NIH of 6 was obtained.? A CT and CTA of his head and neck were performed and both were negative.? He was evaluated by the stroke neurologist and given his NIH tPA was ordered as the patient still remained within the 4-1/2-hour window.? On my initial evaluation in the emergency department the patient persisted to speak nonsense and follow limited commands but was able to move all extremities symmetrically.? He was somewhat drowsy.? His exfianc? was at the bedside.? She reports that he was normal on the morning of admission when he awoke, smoked marijuana, went to the gym to workout and when he was coming home from the gym she called him and told her he did not know where he was when in fact he was within 3 blocks of the house.? She was able to get him home and get him changed into close and called the squad.? She denied any knowledge of him using any other substances.? He does have history of alcohol abuse but she indicated he has not had any thing to drink in approximately 4 years.? His alcohol level was negative on admission.? Per his exfianc? the only significant history she knew of besides alcohol abuse was hypertension and she was unclear if he uses his medications for this.? His vital signs were all stable in the emergency department.? He had a mildly elevated white count on his CBC at 11.3 but this was otherwise unremarkable.? His coag studies were negative.? His BMP showed a mildly elevated BUN at 34 and he was mildly hypokalemic with a potassium of 3.4.? Troponin level was negative. Given his tPA administration he was admitted to the ICU. Upon arrival to the ICU the patient got very combative and agitated and a code Tania was called.? He required significant restraints in the form of german and was given 20 mg of Geodon IM, 2 mg of IM Ativan and a total of 10 mg of IV Haldol before he was calm enough to allow reinsertion of peripheral IVs.? He pulled out his initial bilateral antecubital IVs during his extreme agitation.? He was talking nonsense throughout this episode but was very strong and required several people to main control of him so he would not hurt himself or the people around him.? We were finally able to get him fairly subdued with the restraints and were able to initiate a Precedex drip. We were able to control his behavior with the Precedex and restraints. On Wednesday we attempted to wean his Precedex but he became very agitated again and herman Marin was called x3. His Precedex was again maxed out and he was given IV Ativan regularly along with the Precedex. We continued his Precedex on Wednesday through the day and by Wednesday we were able to wean his Precedex completely off. He was still somewhat somnolent but agreeable to an MRI once he got MRI he then became agitated and refused to proceed. He has no recollection of this event. Teleneurology was consulted and they recommended a CT head with IV contrast, inflammatory labs and a hypercoagulable panel. His CRP was mildly elevated but his ESR was negative. His hypercoagulable panel was pending at discharge. An MRI was able to be obtained on 12/18/2020 was negative for any acute pathological process. An EEG was also obtained and showed diffuse slowing related medications but no signs of seizure activity. An echocardiogram was done and was negative for any acute processes. Given his significant improvement we will go ahead and discharge him home at this time with recommendation to follow-up with neurology as an outpatient. Of note he does report some psychiatric illness but is not specified in both his uncle and father. He may return to work on Wednesday. He is to follow-up with neurology in 1 to 2 weeks as able. Discharge diagnoses Acute toxic/metabolic encephalopathy Altered level of consciousness Hypokalemia-resolved Gynecomastia Tobacco abuse THC use History of alcohol abuse Physical Exam Const alert, oriented x3, no apparent distress, average body habitus, healthy appearing and well nourished Constitutional Narrative: Middle-aged white male walking around his hospital room, girlfriend is at bedside he appears mildly anxious but in no distress General Appearance: cooperative, comfortable, well developed and uncooperative Orientation / Consciousness: confused and disoriented Exam Limitations: altered mental status and behavioral limitations; Negative for no limitations, language barrier or physical limitations Nutritional Appearance: other Other Details: Average weight HEENT normocephalic, head/scalp atraumatic, hearing grossly normal bilaterally, moist oral mucous membranes, oropharynx normal and dentition normal Eyes PERRL, EOMs intact bilaterally and conjunctivae normal Eyes Narrative: Pupils were dilated but reactive Neck no lymphadenopathy, supple, no JVD and no carotid bruits Neck Narrative: Trachea midline Resp normal respiratory effort, no retractions, no use of accessory muscles and clear to auscultation bilaterally Auscultation: Negative for crackles, rales, rhonchi or wheezes Cardio regular rate, regular rhythm, S1 normal heart sound, S2 normal heart sound, no murmurs, no rub, no gallops, no clicks and no JVD GI normal to inspection, nondistended, normoactive bowel sounds, soft to palpation, non-tender and non-distended; Negative for hepatosplenomegaly GI Narrative: Flat Auscultation: Negative for hyperactive bowel sounds or hypoactive bowel sounds Palpation: Negative for tender, guarding or hernia Extremity normal to inspection and no clubbing, cyanosis or edema; Negative for full ROM Extremity Narrative: Few small scattered ecchymosis bilateral arms related to venous blood draws and IV placement-healing well Skin no rashes or lesions noted, no wounds, skin turgor normal, no jaundice, no petechiae and no mottling Skin Narrative: Bilateral gynecomastia Neuro oriented x3, CN's II-XII intact bilaterally, moves all extremities, no focal motor deficits and no sensory deficits noted Neuro Narrative: Patient is up walking around room independently, girlfriend is at the bedside, he shows some mild thought process deficits but overall is much improved Sensorium / Orientation: awake, alert, oriented to person, oriented to place and oriented to time Speech: speech normal Motor Exam: strength 5/5 throughout Psych Psych Narrative: Patient appears mildly anxious, interaction is more appropriate, affect is normal Mood & Affect: anxious ABG / Lab / Microbiology Data Result Diagrams: 12/16/20 03:15 12/18/20 06:25 Laboratory: Laboratory Results - last 24 hr 12/17/20 12/17/20 12/18/20 15:45 15:45 06:25 ESR 8 Sodium 141 Potassium 3.4 L Chloride 108 H Carbon Dioxide 28.0 Anion Gap 5 BUN 9 Creatinine 0.76 Estim Creat Clear Calc 145.77 Est GFR (MDRD) Af Amer 148 Est GFR (MDRD) Non-Af 123 BUN/Creatinine Ratio 11.8 Glucose 98 Calcium 8.8 C-React Prot Ext Range 18.40 H Radiography Diagnostic Testing: Radiology Impression Brain CT 12/17/20 15:12 IMPRESSION: Negative CT Brain with and without contrast. Individualized dose optimization techniques were used for this CT. at 1728 Reported and signed by: Kam Ledesma MD Electronically Signed: Kam Ledesma MD at 17:27 EDT Tel , Service support , Brain MRI 12/18/20 09:00 IMPRESSION: Normal unenhanced MRI of the brain. Electronically Signed: Mendy Santana MD at 13:22 EDT Tel , Service support , D/C Instructions Discharge Diet: No restrictions Discharge Activity: May Not Drive (Until Wednesday) Return to work on: 05/31/21 May resume sexual activity in: No Restrictions Meaningful Use Info Meaningful Use Diagnoses (Choose all that apply): None applicable Discharge Plan Admission Admit Date/Time: 12/14/20 17:22 Primary Reason for Your Visit: Altered mental status Attending Provider: Latoya Amos Primary Care Provider: Care Physician,No Primary Consulting Providers: Charly Anderson ; Behzad Auguste ; Tory Lloyd ALLERGIST Instructions Patient Instructions: Stroke, ED ALOC Discharge Orders/Prescriptions Referrals / Follow Up: Adrien Morrissey MD [STAFF PHYSICIAN] - (1-2 weeks) Laney Alfred [NON-STAFF] - ( with in 7 days) Disposition Disposition (needs filled in before D/C Order can be placed): Home, self care Visit Charges Inpatient E&M: 23570 Disch Hosp
[2020-12-18] MEDS: Potassium Chloride Oral Tablet 20 MEQ 40 MEQ PO (14:00)
[2020-12-18] MEDS: Furosemide 20 MG/2 ML VIAL IV (14:00)
--- NOTE | 2020-12-18 14:41 | DCINST_ITS ---
Discharge Instructions Diet Discharge Diet: No restrictions Activity Discharge Activity: May Not Drive (Until Wednesday) Return to work on:: 12/23/20 May resume sexual activity in: No Restrictions Follow Up Care Test Results: Test results from this visit will be discussed in further detail at your follow-up appointment, if applicable. Discharge Plan Admission Admit Date/Time: 12/14/20 17:22 Primary Reason for Your Visit: Altered mental status Attending Provider: Latoya Amos Primary Care Provider: Care Physician,No Primary Consulting Providers: Charly Anderson ; Behzad Auguste ; Tory Lloyd ANESTHESIOLOGY CRNA Instructions Patient Instructions: Stroke, ED ALOC Discharge Orders/Prescriptions Referrals / Follow Up: Adrien Morrissey MD [STAFF PHYSICIAN] - (1-2 weeks) Laney Alfred [NON-STAFF] - ( with in 7 days) Disposition Disposition (needs filled in before D/C Order can be placed): Home, self care
--- NOTE | 2020-12-18 14:42 | CASEMGMT ---
SW did not complete a PHQ 9 with patient as per physician he did not have a Stroke. Susana Rios LOCAL AREA NETWORK ADMINISTRATOR NELIDA
[2020-12-19 16:08] LABS: Cytoplasmic Ab (C-ANCA) <1:20 titer (Neg:<1:20)
[2020-12-19 17:44] LABS: Perinuclear Ab (P-ANCA) <1:20 titer (Neg:<1:20)
[2020-12-24 12:07] LABS: Protein C Antigen 75 % (60-150); Protein C, Functional 88 % (73-180)
[2020-12-24 15:53] LABS: Anti-Cardiolipin Ab, IgG, Qn < 9 GPL U/mL (0-14); Anti-Cardiolipin Ab, IgM, Qn < 9 MPL U/mL (0-12); Anti-Thrombin 3 AG, Immunol 99 % (72-124); Antithrombin 3 Function 100 % (75-135); Beta-2-Glycoprotein I IgA <9 (0-25); Beta-2-Glycoprotein I IgG <9 (0-20); Beta-2-Glycoprotein I IgM <9 (0-32)
== END 2020-12-18 15:03 | disposition home or self-care (01) | DRG 93 ==
LOC: ED 16:49 → ICU 17:28 → PCU 12-17 17:55
PROVIDERS: Family Medicine; Internal Medicine Critical Care Medicine; Nurse Practitioner Family; Admitting Provider Internal Medicine; Emergency Provider Emergency Medicine; Visit Provider Internal Medicine
DX: G92 Toxic encephalopathy (principal); I10 Essential (primary) hypertension; F19.10 Other psychoactive substance abuse, uncomplicated; R29.706 NIHSS score 6; F12.90 Cannabis use, unspecified, uncomplicated; E87.6 Hypokalemia; D72.829 Elevated white blood cell count, unspecified; N62 Hypertrophy of breast; R45.1 Restlessness and agitation; F17.200 Nicotine dependence, unspecified, uncomplicated; R00.1 Bradycardia, unspecified; Z86.16 Personal history of COVID-19; T50.905A Adverse effect of unspecified drugs, medicaments and biological substances, initial encounter; R40.4 Transient alteration of awareness
CPT/HCPCS: 36415; 70450; 70470; 70496; 70498; 70551; 71045; 80048; 80053; 80061; 80307; 81240; 81241; 82077; 82962; 84443; 84484; 85025; 85300; 85301; 85302; 85303; 85610; 85652; 85730; 86140; 86146; 86147; 86256; 92523; 92610; 93005; 93306; 95819; 97162; 97166; 99284; J2997; J7030; J7050; Q9967; A4216; J1940; J3486

== ENCOUNTER → 2021-01-06 12:11 | Outpatient (CLI) | payer MEDICAID, SELFPAY ==
[2020-12-24 10:35] VITALS: BMI 23.8
--- NOTE | 2021-01-06 12:21 | RAD_ITS ---
STUDY: X-RAY - LEFT SHOULDER REASON FOR EXAM: Male, 35 years old. PAIN TECHNIQUE: 4 view(s) of the shoulder. COMPARISON: None. FINDINGS: Normal glenohumeral articulation. Normal acromioclavicular joint. Normal acromion. Normal humeral head and visualized proximal humerus. The soft tissue structures are unremarkable. Normal visualized pulmonary apex. RAD/Shoulder min 2 Views IMPRESSION: Normal x-ray examination of the shoulder. Electronically Signed: Sebastian Garcia MD at 15:44 EDT , Service support ,
--- NOTE | 2021-01-06 12:21 | RAD_ITS ---
STUDY: X-RAY - RIGHT SHOULDER REASON FOR EXAM: Male, 35 years old. PAIN IN SHOULDER TECHNIQUE: 4 view(s) of the shoulder. COMPARISON: None. FINDINGS: Normal glenohumeral articulation. Normal acromioclavicular joint. Normal acromion. Normal humeral head and visualized proximal humerus. The soft tissue structures are unremarkable. Normal visualized pulmonary apex. RAD/Shoulder min 2 Views IMPRESSION: Normal x-ray examination of the shoulder. Electronically Signed: Sebastian Garcia MD at 15:44 EDT , Service support ,
== END ==
PROVIDERS: Referring Provider Nurse Practitioner Adult Health; Visit Provider Nurse Practitioner Adult Health
DX: M25.519 Pain in unspecified shoulder (principal)
CPT/HCPCS: 73030

== ENCOUNTER → 2021-02-27 08:10 | Outpatient (CLI) | payer MEDICAID, SELFPAY ==
[2021-02-05 09:13] VITALS: BMI 24.3
--- NOTE | 2021-02-27 08:13 | CDU_ITS ---
Reason For Study: Syncope and collapse Rt. Velocities/BP Lt. Velocities/BP Prox CCA 121.7/22.6 cm/sec. Prox CCA 130.2/26.1 cm/sec. Mid CCA 139.4/31.6 cm/sec. Mid CCA 113.8/27.9 cm/sec. Dist CCA 112/33.4 cm/sec. Dist CCA 119.3/31.6 cm/sec. Prox ICA 112/27.9 cm/sec. Prox ICA 83.9/22.5 cm/sec. Mid ICA 115.6/29.8 cm/sec. Mid ICA 80.9/26.1 cm/sec. Dist ICA 97.4/31.6 cm/sec. Dist ICA 79/29.8 cm/sec. Rt. ICA/CCA = 1.00. Lt. ICA/CCA = 0.70. Prox ECA 102.8/11.5 cm/sec. Prox ECA 87.6/11.4 cm/sec. Rt. Vert. 58.6/12.4 cm/sec. Lt. Vert. 65.5/17.6 cm/sec. Right Extracranial There is intimal thickening but no significant atherosclerotic plaque noted in the right common carotid artery. There is no significant atherosclerotic plaque noted in the right internal carotid artery. There is no significant atherosclerotic plaque noted in the right external carotid artery. Antegrade flow is noted in the right vertebral artery. Left Extracranial There is intimal thickening but no significant atherosclerotic plaque noted in the left common carotid artery. There is no significant atherosclerotic plaque noted in the left internal carotid artery. There is no significant atherosclerotic plaque noted in the left external carotid artery. Antegrade flow is noted in the left vertebral artery. Procedure Carotid Duplex [id number]. This is a Carotid Duplex examination using B-mode, color flow and specral Doppler. Exam performed in department. VL/Carotid Duplex Ultrasound Interpretation Summary No significant atherosclerotic plaque or stenosis noted in the internal carotid arteries bilaterally. Flow within the vertebral arteries is antegrade bilaterally. Ordering Physician: Penelope Anderson Referring Physician: [facility] Performed By: Laura Cannon RVT
== END ==
PROVIDERS: Referring Provider Nurse Practitioner Adult Health; Visit Provider Nurse Practitioner Adult Health
DX: R55 Syncope and collapse (principal)
CPT/HCPCS: 93880

== ENCOUNTER → 2021-03-01 07:17 | Outpatient (CLI) | payer MEDICAID, SELFPAY ==
[2021-02-05 09:13] VITALS: BMI 24.3
--- NOTE | 2021-03-01 07:18 | MRI_ITS ---
STUDY: MRI CERVICAL SPINE WITHOUT CONTRAST REASON FOR EXAM: Male, 35 years old. upper extremity pains / parasthesias TECHNIQUE: Standardized fat and water weighted pulse sequences were obtained in the sagittal and axial planes. COMPARISON: X-ray 02/05/2021. FINDINGS: Normal foramen magnum and brainstem-cervical cord junction. Normal craniovertebral junction. Normal anterior atlantoaxial articulation. Normal odontoid process. Normal cervical lordosis. Normal vertebral bodies and posterior osseous elements. C2-3: Normal endplates. Normal disc height, signal and morphology. Normal central canal and intervertebral neural foramina. C3-4: Normal endplates. Normal disc height, signal and morphology. Normal central canal. Mild left foraminal encroachment due to uncinate hypertrophy. C4-5: Normal endplates. Normal disc height, signal and morphology. Normal central canal. Severe left foraminal stenosis due to uncinate hypertrophy. C5-6: Normal endplates. Normal disc height, signal and morphology. Mild, noncompressive spondylotic bar. Normal central canal. Severe bilateral foraminal stenosis due to uncinate hypertrophy. C6-7: Normal endplates. Normal disc height, signal and morphology. Mild noncompressive spondylotic bar. Normal central canal. Severe foraminal stenosis due to uncinate hypertrophy. C7-T1: Normal endplates. Normal disc height, signal and morphology. Normal central canal and intervertebral neural foramina. Normal cervical cord. Normal visualized soft tissue structures. MRI/Spine Cervical (Routine) IMPRESSION: 1. No disc protrusion or canal stenosis. 2. Severe foraminal stenosis from C4-5 through C6-7. Electronically Signed: Sherrie Mathew MD at 21:53 EDT Tel , Service support ,
== END ==
PROVIDERS: Referring Provider Physician Assistant; Visit Provider Physician Assistant
DX: G56.93 Unspecified mononeuropathy of bilateral upper limbs (principal); R29.898 Other symptoms and signs involving the musculoskeletal system; M43.6 Torticollis
CPT/HCPCS: 72141

== ENCOUNTER → 2021-03-21 10:10 | Outpatient (CLI) | payer MEDICAID, SELFPAY ==
[2021-02-05 09:13] VITALS: BMI 24.3
--- NOTE | 2021-03-21 13:01 | NEURO ---
NCS and/or EMG Patient Report Ordering Doctor: Luis Eduardo Aponte DATE OF SERVICE: 03/21/21 Indication: Weakness, pain and numbness on the lateral arms since a hospitalization in November. Fluctuating numbness in both hands. Evaluate for cervical radiculopathy and/or entrapment neuropathy. Findings: Nerve conduction studies were performed in the right and left upper extremities. The right median motor study recording the abductor pollicis brevis showed a normal amplitude, prolonged distal latency and normal conduction velocity. The right ulnar motor study recording the abductor digiti minimi showed a normal amplitude, normal distal latency and borderline conduction velocity. No conduction block or focal slowing was present across the elbow. The right median sensory response recording digit two showed a normal amplitude, prolonged latency and slowed conduction velocity. The right ulnar sensory response recording digit five showed a normal amplitude, normal latency and borderline conduction velocity. The right radial sensory response recording over the extensor snuff box showed a normal amplitude, normal latency and mildly slowed conduction velocity. Right median-ulnar lumbrical / interosseous motor latencies showed a borderline prolonged median latency compared to the ulnar. The left median motor study recording the abductor pollicis brevis showed a normal amplitude, prolonged distal latency and normal conduction velocity. The left ulnar motor study recording the abductor digiti minimi showed a normal amplitude, normal distal latency and normal conduction velocity. No conduction block or focal slowing was present across the elbow. The left median sensory response recording digit two showed a normal amplitude, prolonged latency and slowed conduction velocity. The left ulnar sensory response recording digit five showed a normal amplitude, normal latency and borderline conduction velocity. The left radial sensory response recording over the extensor snuff box showed a normal amplitude, normal latency and mildly slowed conduction velocity. Left median-ulnar lumbrical / interosseous motor latencies showed a prolonged median latency compared to the ulnar. Needle EMG of the right upper extremity and cervical paraspinal muscles was performed. Active denervation was seen in the deltoid muscle muscle. The deltoid muscle revealed slightly enlarge motor units with reduced recruitment. All other motor unit morphology, activation and recruitment patterns were normal. Needle EMG of the left upper extremity and cervical paraspinal muscles was performed. Active denervation was seen in the deltoid muscle muscle. The deltoid muscle revealed slightly enlarge motor units with reduced recruitment. All other motor unit morphology, activation and recruitment patterns were normal. Impression: This is a markedly abnormal and complex study. 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 There are no additional findings to suggest a lesion of the nerve roots or brachial plexus (upper trunk or posterior cord) in either upper extremity. In addition, there is electrophysiologic evidence compatible with mild, bilateral, median neuropathies across the wrist. Jimmy Zhou D.O.
== END ==
PROVIDERS: Referring Provider Physician Assistant; Visit Provider Physician Assistant
DX: G56.93 Unspecified mononeuropathy of bilateral upper limbs (principal); R29.898 Other symptoms and signs involving the musculoskeletal system
CPT/HCPCS: 95886; 95913

== ENCOUNTER → 2024-07-06 | Outpatient (CLI) | payer OTHER, SELFPAY ==
[2024-07-06 12:40] LABS: Absolute Lymphocyte Count 3.23 X10^3/uL (0.83-4.51); Absolute Neutrophil Count 4.4 X10^3/uL (2.0-7.7); Basophil# 0.03 X10^3/uL; Basophil% 0.4 % (0-1); Eosinophil# 0.11 X10^3/uL; Eosinophils% 1.3 % (0-5); Hemoglobin 14.4 g/dL (13.0-16.5); Lymphocyte # 3.23 X10^3/ul (0.83-4.51); Mean Corp Hgb Conc 34.3 g/dL (32-36); Mean Corpuscular Hgb 29.3 pg (27.0-32.0); Mean Corpuscular Volume 85.5 fL (80-94); Mean Platelet Vol. 8.6 fl (6.2-12.0); Monocyte# 0.47 X10^3/uL; Monocyte% 5.7 % (0-10); NRBC Flagged by Analyzer 0 % (0-5); Neutrophil # 4.44 X10^3/uL (2.7-7.7); Neutrophil % 53.5 % (47-70); Platelet Count 268 K/mm3 (150-450); RBC Distribution Width CV 12.2 % (11.6-14.6); Red Blood Count 4.91 M/mm3 (4.6-6.2); White Blood Count 8.3 K/mm3 (4.4-11.0)
[2024-07-06 13:00] LABS: Vitamin B12 768 pg/mL (211-911); Vitamin D,25 Hydroxy 6.4 ng/mL
[2024-07-06 13:17] LABS: ALB/GLOB Ratio 1.2 RATIO (0.9-2.4); AST(SGOT) 28 U/L (15-37); Alanine Aminotransfer ALT/SGPT 31 U/L (16-61); Alkaline Phosphatase 66 U/L (45-117); Anion Gap 5 (5-15); BUN 8 mg/dL (7-18); BUN/Creat Ratio 8.3 RATIO (10-20); Calcium,Total 9.4 mg/dL (8.5-10.1); Chloride 108 mmol/L (98-107); Creatinine, Serum 0.97 mg/dL (0.70-1.30); EST Glomerular Filtration Rate 91 mL/min (>60); Est Glom Filt Rate - Afr Amer 110 mL/min (>60); Ferritin 135 ng/mL (26-388); Globulin 3.3 g/dL (2.2-4.2); Glucose 86 mg/dL (74-106); Iron 97 ug/dL (65-175); Magnesium 1.9 mg/dL (1.6-2.6); Potassium 3.3 mmol/L (3.5-5.1); Protein, Total 7.3 g/dL (6.4-8.2); Sodium Level 142 mmol/L (136-145); Thyroid Stim Hormone (TSH) 0.979 uIU/mL (0.358-3.740)
[2024-07-16 16:07] LABS: VITAMIN B6 17.6 ug/L (3.4-65.2)
== END | disposition home or self-care (01) ==
LOC: VSLAB 11:49
PROVIDERS: Visit Provider Nurse Practitioner
DX: F33.1 Major depressive disorder, recurrent, moderate (principal)
CPT/HCPCS: 36415; 80053; 82306; 82607; 82728; 82746; 83540; 83735; 84207; 84443; 85025